=== PATIENT | female | born 1955 | race Caucasian/White ===

== ENCOUNTER 2022-09-11 21:02 | Outpatient (REF) | payer SELFPAY ==
[2022-09-11 21:44] LABS: Amphetamine Screen Urine NEGATIVE (NEGATIVE); Barbiturates Screen Urine NEGATIVE (NEGATIVE); Benzodiazepines Screen Urine NEGATIVE (NEGATIVE); Buprenorphine Screen Urine NEGATIVE (NEGATIVE); Cannabinoid Screen Urine NEGATIVE (NEGATIVE); Cocaine Screen Urine NEGATIVE (NEGATIVE); Methadone Screen Urine NEGATIVE (NEGATIVE); Methamphetamines Screen Urine NEGATIVE (NEGATIVE); Opiate Screen Urine NEGATIVE (NEGATIVE); Oxycodone Screen Urine NEGATIVE (NEGATIVE); Phencyclidine Screen Urine NEGATIVE (NEGATIVE); Tricyclic Antidepressant Urine NEGATIVE (NEGATIVE)
== END 2022-09-11 21:03 | disposition home or self-care (01) ==
LOC: LAB 21:02
PROVIDERS: Visit Provider Nurse Practitioner Primary Care
DX: B02.29 Other postherpetic nervous system involvement (principal)
CPT/HCPCS: 80307

== ENCOUNTER 2024-01-08 13:56 | Outpatient (OUT) | payer OTHER, SELFPAY | END 2024-01-08 13:57 | disposition home or self-care (01) | LOC: PST 13:56 | PROVIDERS: Visit Provider Surgery | DX: Z01.818 Encounter for other preprocedural examination (principal); Z12.11 Encounter for screening for malignant neoplasm of colon; Z86.0100 Personal history of colon polyps, unspecified ==

== ENCOUNTER 2024-02-06 11:42 | Outpatient (OUT) | payer OTHER, SELFPAY ==
--- OUTSIDE RECORDS SUMMARY | 2024-02-06 11:51 | XMS_ITS | CCD ---
Author Organization [facility] Care Team Providers Care Single Needle Operator Name Role Phone Unavailable Unavailable Unavailable Sandra Maxwell Unavailable Andrews Bustillos Primary Care Unavailable Vivian Giles Consulting Unavailable Mickey Shrestha Attending UnavailFuad Calhoun Admitting Unavailab Izzy Ulloa Consulting Unavailable Berny Hill Consulting Unavailable Que Servin Consulting Unavail able Radha Moran Consulting Unavailable Almas Harrison Consulting Unavailab Deborah Stevens Consulting Unavailable Elisabeth Leblanc Consulting Unavailable Lucia Pina Consulting Unavailab Jeny Beltre Consulting Unavailable DELMA SPAIN Attending Unavailable PIERCE, BARRY Referring Unavailable PIERCE, BARRY Primary Care Unavailable DELMA SPAIN Referring Unavailable PIERCE, BARRY Primary Care Unavailable KREIvette-SETH, CHANDAN Referring Unavailable PIERCE, BARRY Primary Care Unavailable JAMIE-SETH, CHANDAN Attending Unavailable PIERCE, BARRY Referring Unavailable PIERCE, BARRY Primary Care Unavailable Unavailable Primary Care Provider UnavailWaqar Manzo MD Unavailable Peggy Crawford MD Primary Care Provider Jade CUSTOMER SERVICE TELLER, Sis Unavailable SIS HANSEN Attending Unavailable NEGRITO CROOK Attending Unavailab SIS Cartagena Attending Unavailable SALBADOR LUNA Attending Unavailable JADE, SIS Referring Unavailable JADE, SIS Referring Unavailable IRVING PACHECO Attending Unavailable PIERCE, BARRY Primary Care Unavailable KREH-SETH, CHANDAN Referring Unavailable PIERCE, BARRY Primary Care Unavailable KREH-SETH, CHANDAN Referring Unavailable PIERCE, BARRY Primary Care Unavailable KREH-SETH, CHANDAN Referring Unavailable [facility] Un[facility] Unavailable CHARLOTTE GAMBOA Attending Unavailable CHANDAN MATUTE Referring Unavailable [facility] Unavailable [facility] Unavailable ANDREWS ALLAN Attending Unavailable Allergies Allergy Classification Reported Allergen(s) Allergy Type Date of Onset Reaction(s) Facility (4 sources) BEE VENOM PROTEIN (HONEY BEE); Translations: [BEE VENOM PROTEIN (HONEY BEE)] Propensity to adverse reactions to drug (disorder) 11-25-19 [facility] (4 sources) OELQMNOOS-MS-CT-ACET AMINOPHEN; Translations: [[id number]-WILLIAM TAMINOPHEN] Propensity to adverse reactions to drug (disorder) 03-12-19 [facility] (7 sources) Acetaminophen / Dextromethorphan / guaiFENesin / Pseudoephedrine Drug Allergy 03-12-19 [facility] (7 sources) Honey bee venom Propensity to adverse reactions 11-25-19 Anaphylaxis [facility] Medications Current Medications Medication Drug Class(es) Dates Sig (Normalized) Sig (Original) [id number] 200 actuat albuterol 0.09 mg/actuat metered dose inhaler (3 sources) beta2-Adrenergic Agonist Start: 11-15-2023 End: 11-14-2024 take 2 puff(s) by inhalation every four hours for wheezing albuterol HFA 90 mcg/act inhaler Indications: Cough, unspecified type , Wheezing Inhale 2 puffs every 4 (four) hours if needed for wheezing 18 g 11/15/2023 12/14/2023 Discontinued bisacodyl 5 mg delayed release oral tablet (2 sources) Stimulant Laxative Start: 12-24-2023 End: 12-24-2023 take 1 tablet by mouth once bisacodyl (Dulcolax) 5 MG EC tablet Indications: Personal history of colon polyps, unspecified Take 1 tablet (5 mg) by mouth 1 time for 1 dose Do not crush, chew, or split. Take as detailed on clinic hand out for colonoscopy prep 4 tablet 12/24/2023 12/24/2023 Active docosahexaenoic acid 120 mg / eicosapentaenoic acid 180 mg oral capsule (7 sources) Start: 06-14-2022 omega-3 (fish oil) 1000 MG capsule 1 capsule 1 (one) time each day at the same time. 06/14/2022 Active DULoxetine 30 mg delayed release oral capsule (7 sources) Serotonin and Norepinephrine Reuptake Inhibitor Start: 11-05-2023 take 1 capsule by mouth once daily DULoxetine (Cymbalta) [address] capsule Indications: Spinal stenosis of lumbar region without neurogenic claudication Take 1 capsule (30 mg) by mouth Daily Do not crush or chew. 90 capsule 11/05/2023 Active [id number] 0.3 ml EPINEPHrine 1 mg/ml auto-injector (7 sources) alpha-Adrenergic Agonist, beta-Adrenergic Agonist, Catecholamine Start: 09-19-2023 inject 0.3 mg by intramuscular injection every twenty-four hours as needed EPINEPHrine (Epipen) 0.3 MG/0.3ML injection syringe Inject 0.3 mg into the shoulder, thigh, or buttocks Daily as needed 09/19/2023 Active escitalopram 10 mg oral tablet (1 source) Serotonin Reuptake Inhibitor Start: 06-11-2007 escitalopram oxalate(LEXAPRO 10 MG TAB) hydrOXYzine hydrochloride 25 mg oral tablet (7 sources) Antihistamine take 1 tablet by mouth every six hours as needed for anxiety hydrOXYzine HCl (Atarax) 25 MG tablet Take 25 mg by mouth every 6 (six) hours if needed for anxiety Active ibuprofen 200 mg oral tablet (1 source) Nonsteroidal Anti-inflammatory Drug Start: 06-11-2007 ibuprofen(ADVIL 200 MG TAB) as needed 0 06/11/2007 Active levothyroxine sodium 0.05 mg oral tablet (7 sources) l-Thyroxine Synthroid 50 MCG tablet 1 (one) time each day at the same time. Active MULTIVITAMIN TAB (1 source) Start: 06-11-2007 MULTIVITAMIN TAB Take one(1) tablet daily. 0 06/11/2007 Active Nirmatrelvir&Ritonavi r 300/100 (Paxlovid, 300/100,) 20 x 150 MG & 10 x 100MG tablet therapy pack (3 sources) Start: 11-15-2023 End: 12-14-2023 take 1 tablet by mouth in the morning Nirmatrelvir&Farooq navir 300/100 (Paxlovid, 300/100,) 20 x 150 MG & 10 x 100MG tablet therapy pack Indications: COVID-19 Take 1 Dose pack by mouth in the morning and 1 Dose pack before bedtime. 1 each 11/15/2023 12/14/2023 Discontinued Start: 11-15-2023 take 1 tablet by perla th in the morning Nirmatrelvir&Ritonavir 300/100 (Paxlovid , 300/100,) 20 x 150 MG & 10 x 100MG tablet therapy pack Indications: COVID-19 Take 1 Dose pack by mouth in the morning and 1 Dose pack before bedtime. 1 each 11/15/2023 Active polyethylene glycol 3350 68603 mg powder for oral solution (2 sources) Osmotic Laxative Start: 12-24-2023 End: 12-24-2023 take 17 g by mouth once polyethylene glycol, PEG, 3350 (Glycolax) 17 GM/SCOOP powder Indications: Colonoscopy Take 238 g by mouth 1 (one) time for 1 dose Take as detailed from clinic hand out for colonoscopy prep 238 g 12/24/2023 12/24/2023 Active Problems Active Problems Problem Classification Problem Date Documented Da te Episodic/Chronic Anxiety disorders (4 sources) Panic attack; Translations: [Panic disorder [episodic paroxysmal anxiety]] 12-14-2023 Chronic Diabetes mellitus without complication (9 sources) Prediabetes; Translations: [Prediabetes] 11-07-2023 Episodic Disorders of lipid metabolism (10 sources) Pure hypercholesterolemia , unspecified; Translations: [Hypercholesterolemi a] Onset: 04-19-2021 11-05-2023 Chronic Essential hypertension (9 sources) Hypertensive disorder; Translations: [Essential (primary) hypertension] 11-07-2023 Chronic Immunizations and screening for infectious disease (1 source) Encounter for observation for suspected exposure to other biological agents ruled out; Translations: [Exposure To Biological Agent Suspected] Onset: 09-08-2019 Episodic Other and unspecified benign neoplasm (4 sources) Tubular adenoma ; Translations: [Benign neoplasm, unspecified site] 12-14-2023 Episodic Other and unspecified benign neoplasm (6 sources) History of polyp of colon; Translations: [History of colon polyps] 12-14-2023 Episodic Other bone disease and musculoskeletal deformities (9 sources) Osteopenia; Translations: [Other specified disorders of bone density and structure, unspecified site] 11-07-2023 Episodic Other nervous system disorders (2 sources) Disease of spinal cord, unspecified; Translations: [Disease of spinal cord, unspecified] Onset: 07-11-2023 Chronic Other non-traumatic joint disorders (1 source) Pain in left hip; Translations: [Pain in left hip] Onset: 07-05-2023 Episodic Other non-traumatic joint disorders (1 source) Pain in left wrist; Translations: [Pain in left wrist] Onset: 01-14-2024 Episodic Other non-traumatic joint disorders (1 source) Pain in wrist Onset: 01-14-2024 Episodic Other screening for suspected conditions (not mental disorders or infectious disease) (2 sources) Patient encounter status; Translations: [Encounter for screening mammogram for malignant neoplasm of breast] 12-14-2023 Episodic Residual codes; unclassified (7 sources) Insomnia; Translations: [Insomnia, unspecified] Onset: 11-05-2023 11-05-2023 Episodic Screening and history of mental health and substance abuse codes (4 sources) Personal history of nicotine dependence; Translations: [Personal history of tobacco use] 12-14-2023 Episodic Spondylosis; intervertebral disc disorders; other back problems (13 sources) Other spondylosis with radiculopathy, lumbar region; Translations: [Other intervertebral disc degeneration, lumbar region] Onset: 04-20-2020 08-10-2023 Chronic Sprains and strains (1 source) Unspecified sprain of left wrist, initial encounter; Translations: [Unspecified sprain of left wrist, initial encounter] Onset: 01-14-2024 Episodic Thyroid disorders (10 sources) Hypothyroidism, unspecified; Translations: [Hypothyroidism] Onset: 04-19-2021 11-05-2023 Chronic Unclassified (1 source) I47.2 - Ventricular tachycardia; Translations: [I47.2 - Ventricular tachycardia] Onset: 04-19-2021 Unclassified (1 source) New Patient Onset: 07-05-2023 Unclassified (3 sources) Low back pain, unspecified; Translations: [Low back pain, unspecified] Onset: 07-11-2023 Unclassified (1 source) Consult Onset: 07-11-2023 Unclassified (1 source) Insect Bite Onset: 09-19-2023 Unclassified (1 source) ill Onset: 04-28-2024 Past or Other Problems Problem Classification Problem Date Documented Da te Episodic/Chronic Allergic reactions (2 sources) Allergy, unspecified, initial encounter; Translations: [Allergic reaction] Onset: 06-24-2023 Episodic Cardiac dysrhythmias (10 sources) Nonsustained ventricular tachycardia ; Translations: [Paroxysmal ventricular tachycardia] Onset: 11-05-2023 Resolved: 12-14-2023 11-05-2023 Chronic Malaise and fatigue (1 source) Other fatigue; Translations: [R53.83 - Other fatigue] Onset: 04-19-2021 Episodic Mood disorders (6 sources) Mood disorders Onset: 12-14-2023 12-14-2023 Other and unspecified benign neoplasm (7 sources) Hyperplastic polyp of intestine; Translations: [Polyp of colon] Onset: 03-22-2020 11-05-2023 Episodic Poisoning by nonmedicinal substances (1 source) Toxic effect of venom of bees, accidental (unintentional), initial encounter; Translations: [Toxic effect of venom of bees, accidental (unintentional), initial encounter] Onset: 06-24-2023 Episodic Residual codes; unclassified (1 source) Insomnia, unspecified; Translations: [G47.00 - Insomnia, unspecified] Onset: 04-19-2021 Episodic Spondylosis; intervertebral disc disorders; other back problems (12 sources) Radiculopathy, lumbar region; Translations: [Lumbar radiculopathy] Onset: 06-02-2020 08-10-2023 Episodic Results Test Name Value Interpretation Reference Range Facility XR WRIST LT MIN 3 VWSon 11- XR WRIST LT MIN 3 VWS XR WRIST LT MIN 3 VWS XR WRIST LT MIN 3 VWS HISTORY: Wrist pain, injury COMPARISON: None FINDINGS: There is no acute fracture, dislocation, or destructive osseous lesion. Well-corticated osseous density abutting the ulnar styloid process, potentially representing sequelae of remote injury. Radiocarpal and ulnocarpal joint spaces are preserved. Carpal arcs are maintained. IMPRESSION: * No acute osseous abnormality. Approved by Resident Andrews Lehman DO on 01/14/2024 6:03 PM Nico Verdin have personally reviewed the image(s) and agree with and/or edited the report Finalized by Nico Adams on 01/14/2024 6:10 PM Normal [facility] BI MAMMOGRAM SCREENING TOMOS YNTHESIS BILATERALon 12-27-2023 BI MAMMOGRAM SCREENING TOMOSYNTHESIS BILATERAL This is a summary report. The complete report is available in the patient's medical record. If you cannot access the medical record, please contact the sending organization for a detailed fax or copy. Examination: BI MAMMOGRAM SCREENING TOMOSYNTHESIS BILATERAL Clinical History: screening Technique: Screening digital mammography study of both breasts was performed with 2-D and 3-D tomosynthesis imaging. Study was compared to the prior exam dated 06/02/2022. Findings: There is no evidence of interval dominant spiculated mass, grouped microcalcifications, or skin thickening which would be suggestive of malignancy. Axillary lymph nodes are noted bilaterally. IMPRESSION: Impression: No specific evidence of malignancy seen in either breast. BIRADS 2 - Benign DENSITY: There are scattered areas of fibroglandular density FOLLOW-UP: Routine Screening Mamm ELECTRONICALLY SIGNED BY: Arie Crawford M.D. Normal Not Available CT LUNG SCREENING LOW DOSEon 12-27-2023 CT LUNG SCREENING LOW DOSE This is a summary report. The complete report is available in the patient's medical record. If you cannot access the medical record, please contact the sending organization for a detailed fax or copy. LOW DOSE CT IMAGING OF THE CHEST WITHOUT INTRAVENOUS CONTRAST MEDIUM. HISTORY: Tobacco use. TECHNICAL FACTORS: Without IV contrast axial helical 1.25mm slice thickness low dose images of the chest performed for lung cancer screening. FINDINGS: No suspicious lung mass or parenchymal consolidation. No significant mediastinal or hilar lymphadenopathy, pleural or pericardial effusion. IMPRESSION: Lung Rads: LUNGRADS 1 - Negative Follow-up Recommendation: LDCT 1 Year Lung Rads categories Category 0: Incomplete Additional Imaging Categories 1 & 2: Negative/Benign Continue annual screening Category 3: Probable benign 6 month f/u CT Chest wo Category 3s: Clinically significant or potentially clinically significant findings Category 4A/B Suspicious 4A: [address] Chest wo; PET/CT when > 8mm solid nodule component exists 4B: Chest w/ contrast; PET/CT and/or biopsy All CT scans at this facility use dose modulation, iterative reconstruction, and/or weight based dosing when appropriate to reduce radiation dose to as low as reasonably achievable. TRANSCRIBED BY: ELECTRONICALLY SIGNED BY: Corona Nazario MD Normal Not Available MR LUMBAR SPINE WO CONTon MR LUMBAR SPINE WO CONT MR LUMBAR SPINE WO CONT CLINICAL INFORMATION: Osteoarthritis of spine with radiculopathy, lumbar region; Lumbar radiculopathy; Lumbar myelopathy (CMS-HCC); Low back pain, unspecified back pain laterality, unspecified chronicity, unspecified whether sciatica present; DDD (degenerative disc disease), lumbar TECHNIQUE: Routine multiplanar multisequence MR imaging of the lumbar spine was performed without contrast. COMPARISON: Radiographs 07/11/2023 FINDINGS: Vertebral body heights and alignment are maintained of the lumbar spine. Normal lumbar lordosis. Homogeneous marrow signal. Multilevel degenerative disc disease. No significant STIR abnormality is present within the lumbar spine. Paraspinal musculature and partially visualized abdomen are within normal limits. Conus medullaris extends to the L1 level normal limits. T11-T12: Mild broad-based disc bulge, no spinal canal or neuroforaminal narrowing. T12-L1: Mild broad-based disc bulge, no significant spinal canal narrowing, mild bilateral neural foraminal narrowing. L1-L2: No significant spinal canal or neuroforaminal narrowing. L2-L3: Broad-based disc bulge, facet arthropathy and ligamentum flavum thickening causing mild spinal canal narrowing and moderate bilateral neural foraminal narrowing. L3-L4: Broad-based disc bulge, facet arthropathy and ligamentum flavum thickening causing minimal spinal canal narrowing, moderate bilateral neural foraminal narrowing. L4-L5: Broad-based disc bulge facet arthropathy causing no significant spinal canal narrowing, moderate left and mild right neural foraminal narrowing. L5-S1: No significant spinal canal narrowing. Severe right and moderate left neural foraminal narrowing. IMPRESSION: * Multilevel degenerative changes of the lumbar spine as described above but most notable at L2-L3 causing mild spinal canal narrowing and moderate bilateral neural foraminal narrowing as well as at L5-S1 with severe right and moderate left neural foraminal narrowing. Finalized by David Lim MD on 07/28/2023 11:42 PM Normal [facility] XR LUMBAR SPINE AP, LATERAL, FLEXION AND EXTENSION ONLYon 07-11-2023 XR LUMBAR SPINE AP, LATERAL, FLEXION AND EXTENSION ONLY XR LUMBAR SPINE AP, LATERAL, FLEXION AND EXTENSION ONLY XR LUMBAR SPINE AP, LATERAL, FLEXION AND EXTENSION ONLY Clinical history:Low back pain, unspecified back pain laterality, unspecified chronicity, unspecified whether sciatica present lumbar back pain Comparison: 02/11/2019 Findings: Advanced multilevel degenerative disc disease with disco loss of amplitude degenerative changes and facet hypertrophy. No significant movement with flexion or extension. Impression: Advanced multilevel degenerative disc disease. No acute process. Finalized by Nico Bronson MD on 07/11/2023 1:31 PM Normal [facility] CARDIAC STRESS/REST INJE CTIONon 05-11-2021 [facility] CARDIAC STRESS/REST INJECTION Patient Name: ADE EDMONDS STUDY: MYOCARDIAL PERFUSION STRESS TEST WITH LEXISCAN Performing facility: [facility], [address] [place] [address], [address] Provider: Deangelo Lyon DO, FACC PCP: Dr. SANDRA MAXWELL Supervising provider: Deangelo Lyon DO, FACC INDICATION: NONSUSTAINED VT HISTORY: Gender: F; Age: 65 y/o ; Height: 0 cm; Weight: 0 kg. High Cholesterol; Arrhythmias;VT Currently smoking. COMPARISON: No comparison. ACCESSION NUMBER(S): [id number]; [id number]; [id number] ORDERING CLINICIAN: QUE LYON TECHNIQUE: ONE DAY protocol. Stress injection: Date:05/11/21, 33.0 mCi of Myoview IV 20 seconds after rapid injection of Lexiscan. Rest injection: Date: 05/11/21, 10.4 mCi of Myoview IV at rest. The patient had a rapid injection of 0.4 mg of Lexiscan IV over 10 seconds. Imaging was performed by gated tomographic technique. Reason for Lexiscan: RECENT KNEE SX STRESS TEST DATA: Resting heart rate was 67 BPM. Resting blood pressure was 110/70 mmHg. Peak blood pressure was 130/70 mmHg. Peak heart rate was 91 BPM. TEST TERMINATED DUE TO: Protocol completed FINDINGS: STRESS TEST RESULTS: Resting electrocardiogram revealed normal sinus rhythm. There were none diagnostic ischemic ECG changes or dysrhythmias. The patient did not have chest pains/symptoms during procedure. There was a normal recovery phase. IMAGING RESULTS: Image quality was good. Rest and stress tomographic images were reviewed and revealed normal perfusion without evidence of ischemia, myocardial infarction, or left ventricular dilatation with stress. Overall left ventricular systolic function appeared to be normal without regional wall motion abnormalities. Ejection fraction was 74%. TID is 1.1 and is normal. There were no evidence of attenuation artifact. IMPRESSION: Normal Lexiscan Myoview cardiac perfusion stress test. No evidence of ischemia or myocardial infarction by perfusion imaging. Normal left ventricular systolic function, ejection fraction 74%. No previous study available for comparison. Electronically signed by: RADHA MORAN MD Normal [facility] No Panel Informationon 05-11 Normal [facility] 250 DO Work Phone: A1C with Estimated Average G luon 04-20-2021 Glucose [Mass/Vol] 114 mg/dL Normal [facility] Comment on above: Order Comment: Comme nt Add on to previous lab draw Result Comment: PERF ORMED BY: [place] [id number] PATHOLOGIST SOFTWARE QA SYSTEM SPECIALIST ARLENE DENTON M.D. Performed By: #### H EPATIC, BMP, LIPASE #### [address] HbA1c (Bld) [Mass fraction] 5.6 % Normal 4.3-5.6 [facility] Comment on above: Order Comment: Comme nt Add on to previous lab draw Result Comment: Incr eased risk for diabetes: 5.7 - 6.4 diabetes: >6.4 glycemic control for adults with diabetes: <7.0 Performed By: #### H EPATIC, BMP, LIPASE #### [facility] [address] [place] [address] Complete Blood Count Auto Di ffon 04-20-2021 Basophils (Bld) [#/Vol] 0.0 10*3/uL Normal 0.0-0.2 [facility] Comment on above: Result Comment: PERF ORMED BY: [address] [place] [address] PATHOLOGIST SOFTWARE QA SYSTEM SPECIALIST ARLENE DENTON M.D. Performed By: #### C BC, CMP #### [facility] [address] Basophils/100 WBC (Bld) 0.3 % Normal . [facility] Comment on above: Performed By: #### C BC, CMP #### [facility] [address] Eosinophils (Bld) [#/Vol] 0.0 10*3/uL Normal 0.0-0.45 [facility] Comment on above: Performed By: #### C BC, CMP #### [facility] [address] Eosinophils/100 WBC (Bld) 0.0 % Normal . [facility] Comment on above: Performed By: #### C BC, CMP #### [address] Erythrocyte distribution width (RBC) [Ratio] 13.9 % Normal 11.9-15.3 [facility] Comment on above: Performed By: #### C BC, CMP #### [address] Hematocrit (Bld) [Volume fraction] 38.7 % Normal 34.0-46.4 [facility] Comment on above: Performed By: #### C BC, CMP #### [address] Hemoglobin (Bld) [Mass/Vol] 12.7 g/dL Normal 11.8-15.4 [facility] Comment on above: Performed By: #### C BC, CMP #### [address] Lymphocytes (Bld) [#/Vol] 0.9 10*3/uL Low 1.00-4.8 [facility] Comment on above: Performed By: #### C BC, CMP #### [address] Lymphocytes/100 WBC (Bld) 6.8 % Normal . [facility] Comment on above: Performed By: #### C BC, CMP #### [place] [address] [place] MCH (RBC) [Entitic mass] 29.8 pg Normal 24.7-34.3 [facility] Comment on above: Performed By: #### C BC, CMP #### [address] MCV (RBC) [Entitic vol] 91.0 fL Normal 80-100 [facility] Comment on above: Performed By: #### C BC, CMP #### [address] Mean Corpuscular HGB Conc 32.8 g/dL Normal 32.0-35.0 [facility] Comment on above: Performed By: #### C BC, CMP #### [address] Monocytes (Bld) [#/Vol] 0.6 10*3/uL Normal 0.0-0.8 [facility] Comment on above: Performed By: #### C BC, CMP #### [address] Monocytes/100 WBC (Bld) 4.5 % Normal . [facility] Comment on above: Performed By: #### C BC, CMP #### [address] Neutrophils (Bld) [#/Vol] 12.1 10*3/uL High 1.8-7.7 [facility] Comment on above: Performed By: #### C BC, CMP #### [address] Neutrophils/100 WBC (Bld) 88.4 % Normal . [facility] Comment on above: Performed By: #### C BC, CMP #### [address] Nucleated RBC/100 WBC (Bld) [Ratio] 0.1 % Normal 0-0.5 [facility] Comment on above: Performed By: #### C BC, CMP #### [address] Platelet mean volume (Bld) [Entitic vol] 8.4 fL Normal 6.3-10.7 [facility] Comment on above: Performed By: #### C BC, CMP #### [facility] [address] Platelets (Bld) [#/Vol] 267 10*3/uL Normal 150-450 [facility] Comment on above: Performed By: #### C BC, CMP #### [facility] [address] [place] [address] RBC (Bld) [#/Vol] 4.25 10*6/uL Normal 3.60-5.00 [facility] Comment on above: Performed By: #### C BC, CMP #### [address] WBC (Bld) [#/Vol] 13.7 10*3/uL High 4.5-11.0 [facility] Comment on above: Performed By: #### C BC, CMP #### [address] Comprehensive Metabolic Pane ileana 04-20-2021 Alanine Aminotransferase Normal 10-60 [facility] Comment on above: Result Comment: Spec imen hemolyzed, redraw requested Performed By: #### C BC, CMP #### [address] Albumin [Mass/Vol] 3.3 g/dL Normal 3.2-5.5 [facility] Comment on above: Performed By: #### C BC, CMP #### [address] Albumin/Globulin [Mass ratio] 1.3 {ratio} Normal [facility] Comment on above: Performed By: #### C BC, CMP #### [address] Alkaline Phosphatase Normal 32-92 [facility] Comment on above: Result Comment: Spec imen hemolyzed, redraw requested Performed By: #### C BC, CMP #### [address] [address] [place] Aspartate Amino Transferase Normal 10-42 [facility] Comment on above: Result Comment: Spec imen hemolyzed, redraw requested Performed By: #### C BC, CMP #### [facility] [address] [place] [address] [place] Bilirubin,Total Normal 0.3-1.2 [facility] Comment on above: Result Comment: Spec imen hemolyzed, redraw requested Performed By: #### C BC, CMP #### [facility] [address] [place] [address] [place] Calcium [Mass/Vol] 8.9 mg/dL Normal 8.2-10.2 [facility] Comment on above: Performed By: #### C BC, CMP #### [facility] [address] Chloride [Moles/Vol] 106 mmol/L Normal 95-114 [facility] Comment on above: Performed By: #### C BC, CMP #### [facility] [address] [place] [address] [place] CO2 [Moles/Vol] 24.6 mmol/L Normal 22.0-30.0 [facility] Comment on above: Performed By: #### C BC, CMP #### [facility] [address] Creatinine [Mass/Vol] 0.70 mg/dL Normal 0.44-1.03 [facility] Comment on above: Performed By: #### C BC, CMP #### [facility] [address] [place] [address] [place] Creatinine Clr Calc Pharmacy 82.12 [facility] Comment on above: Result Comment: PERF ORMED BY: [place] [address] PATHOLOGIST SOFTWARE QA SYSTEM SPECIALIST ARLENE DENTON M.D. Performed By: #### C BC, CMP #### [facility] [address] [place] [address] [place] Estimated GFR ( Patsy > 60 Normal [facility] Comment on above: Result Comment: GFR estimated reference range: According to KDOQI guidelines, <60 ml/min/1.73m2 is sufficient to diagnose a patient with chronic kidney disease. Performed By: #### C BC, CMP #### [address] Estimated GFR (Non- Am > 60 Normal [facility] Comment on above: Performed By: #### C BC, CMP #### [facility] [address] [place] [id number] [place] Globulin (S) [Mass/Vol] 2.6 g/dL Normal [facility] Comment on above: Performed By: #### C BC, CMP #### [address] Glucose [Mass/Vol] 118 mg/dL High 70-100 [facility] Comment on above: Result Comment: [place] Glucose Reference Range is dependent on time and content of last meal. Glucose of more than 200 mg/dL in a nonstressed, ambulatory subject supports the diagnosis of Diabetes Mellitus. ADA recommended reference range Performed By: #### C BC, CMP #### [address] Potassium Normal 3.5-5.1 [facility] Comment on above: Result Comment: Spec imen hemolyzed, redraw requested Performed By: #### C BC, CMP #### [place] [id number] [facility] Protein [Mass/Vol] 5.9 g/dL Low 6.1-7.9 [facility] Comment on above: Performed By: #### C BC, CMP #### [place] [id number] [place] Sodium [Moles/Vol] 138 mmol/L Normal 136-146 [facility] Comment on above: Performed By: #### C BC, CMP #### [place] [id number] [place] Urea nitrogen [Mass/Vol] 12 mg/dL Normal 9-23 [facility] Comment on above: Performed By: #### C BC, CMP #### [address] [place] [address] [facility] echo transthoracicon [facility] echo transthoracic [facility] [address] [place] [address] [place] [address] Echocardiogram Signed Patient: Ade Edmonds MR#: [id number] : 1955 Acct:[id number] Age/Sex: 65 / F ADM Date: 04/19/21 Loc: Room: [address] [place] [address] Type: DIS INOo Attending Dr: Mickey Shrestha DO Ordering Provider: Clint Lagunas DO, RES Date of Service: 04/19/21 [facility] echo transthoracic: pulseless v-tach during surgery outpatient <10s Copies to: Clint Lagunas DO, REI Servin MD Weight: 160 lb Performed By: Christy Feldman RDCS BSA: 1.8 m2 BP: 119/66 mmHg HR: 58 Reason For Study: pulseless v-tach during surgery outpatient <10s History: COVID-19. Smoker. Interpretation Summary The left ventricular size, thickness and function are normal Ejection Fraction = 55-60%. A variety of Doppler measurements indicate normal left ventricular diastolic function. There is trace mitral regurgitation. There is trace tricuspid regurgitation. Procedure/Quality: A two-dimensional transthoracic echocardiogram with color flow and Doppler was performed. The study was technically good in quality. Left Ventricle: The left ventricular size, thickness and function are normal. Ejection Fraction = 55-60%. A variety of Doppler measurements indicate normal left ventricular diastolic function. No left ventricular thrombus or mass is seen. Left Atrium: The left atrium appears normal in size. The atrial septum appears normal. Right Atrium: The right atrium appears normal in size. Right Ventricle: The right ventricular size, thickness and function are normal. Aortic Valve: The aortic valve is normal in structure and function. Mitral Valve: The mitral valve is normal. There is trace mitral regurgitation. Tricuspid Valve: The tricuspid valve is normal. There is trace tricuspid regurgitation. Pulmonic Valve: The pulmonic valve is not well visualized. Arteries: The aortic root is normal size. The aortic arch was visualized and no abnormalities were seen. Pericardium/Pleura: No pericardial effusion seen. There is no pleural effusion. IVC/Hepatic Viens: The inferior vena cava is normal in size, with a normal collapsibility index. Measurements with Normals IVSd: 0.82 cm (0.7-1.1 cm)LVIDd: 4.2 cm (3.7-5.4 cm) LVPWd: 0.83 cm (0.7-1.1 cm)LVIDs: 2.7 cm (2.3-3.6 cm) LA dimension: 3.2 cm (2.3-4.0 cm)Ao root diam: 3.3 cm(2.0-3.6 cm) asc Aorta Diam: 3.0 cm(2.1-3.4cm) Doppler with Normals RVSP(TR): 25.6 mmHg (18-35mmHg) LV V1 max: 109.1 cm/sec (0.7-1.7m/s)MV E max rah: 83.1 cm/sec(0.8-1.3m/s) MV A max rah: 84.4 cm/sec(0.0-0.0m/s) MV E/A: 0.98 (<1.5) MMode/2D Measurements Calculations TAPSE: 2.2 cm FS: 34.7 % Ao root area: LVOT diam: 2.0 cm RV S Rah: EDV(Teich): 8.4 cm2 LVOT area: 3.1 cm2 14.4 cm/sec 77.9 ml ESV(Teich): 27.8 ml EF(Teich): 64.3 % __ LVLd ap4: 7.3 cm SV(MOD-sp4): LAV(MOD-sp4): LA A2 area: 12.4 cm2 EDV(MOD-sp4): 28.0 ml 23.3 ml 48.8 ml LAV(MOD-sp2): LA A4 area: 13.0 cm2 LVLs ap4: 5.8 cm 25.4 ml LA length (vol): ESV(MOD-sp4): 5.4 cm 20.8 ml LA vol: 25.5 ml EF(MOD-sp4): 57.4 % LA vol index: 14.2 ml/m2 Doppler Measurements Calculations MV dec time: MV max PG: E/E' lat: 9.4 MV dec slope: 0.19 sec 39.0 mmHg E/E' med: 10.3 429.2 cm/sec2 __ Ao V2 max: LV V1 max PG: MR max rah: TV max P.0 mmHg 121.6 cm/sec 4.8 mmHg 313.7 cm/sec Ao max P.9 mmHgLV V1 mean PG: MR max PG: Ao mean P.6 mmHg 39.5 mmHg 3.3 mmHg LV V1 mean: Ao V2 mean: 76.7 cm/sec 85.8 cm/sec LV V1 VTI: 24.9 cm Ao V2 VTI: 25.7 cm CARLEE(I,D): 3.0 cm2 CARLEE(V,D): 2.8 cm2 __ TR max rah: 237.7 cm/sec TR max P.6 mmHg RAP systole: 3.0 mmHg Transcribed By: MARISELA Performed At: 04/20/21715 Signed By: Que Servin MD 04/20/21 0852 Normal [facility] Redraw Ezequiel 04-20-2021 ALT [Catalytic activity/Vol] 11 U/L Normal 10-60 [facility] Comment on above: Performed By: #### H RALPH BMP, LIPASE #### [facility] [address] Redraw Toribio 04-20-2021 AST [Catalytic activity/Vol] 17 U/L Normal 10-42 [facility] Comment on above: Performed By: #### H RALPH BMP, LIPASE #### [facility] [address] [place] [address] [place] Redraw Alkaline Phosphataseo n 04-20-2021 ALP [Catalytic activity/Vol] 44 U/L Normal 32-92 [facility] Comment on above: Result Comment: PERF ORMED BY: [place] [address] PATHOLOGIST SOFTWARE QA SYSTEM SPECIALIST ARLENE DENTON M.D. Performed By: #### H EPATIC, BMP, LIPASE #### [address] Redraw Bilirubin,Totalon Bilirubin [Mass/Vol] 0.5 mg/dL Normal 0.3-1.2 [facility] Comment on above: Performed By: #### H EPATIC, BMP, LIPASE #### [address] Redraw Potassiumon Potassium [Moles/Vol] 4.1 mmol/L Normal 3.5-5.1 [facility] Comment on above: Performed By: #### H EPATIC, BMP, LIPASE #### [address] B-Type Natriuretic Peptideon 04-19-2021 Natriuretic peptide B (Bld) [Mass/Vol] 62.0 pg/mL Normal 5-100 [facility] Comment on above: Result Comment: PERF ORMED BY: [place] [address] PATHOLOGIST SOFTWARE QA SYSTEM SPECIALIST ARLENE DENTON M.D. Performed By: #### H EPATIC, BMP, LIPASE #### [address] Basic Metabolic Panelon 03-30 Calcium [Mass/Vol] 9.1 mg/dL Normal 8.2-10.2 [facility] Comment on above: Performed By: #### H EPATIC, BMP, LIPASE #### [place] [address] [place] Chloride [Moles/Vol] 104 mmol/L Normal 95-114 [facility] Comment on above: Performed By: #### H EPATIC, BMP, LIPASE #### [place] [address] [place] CO2 [Moles/Vol] 23.3 mmol/L Normal 22.0-30.0 [facility] Comment on above: Performed By: #### H EPATIC, BMP, LIPASE #### [facility] [address] Creatinine [Mass/Vol] 0.88 mg/dL Normal 0.44-1.03 [facility] Comment on above: Performed By: #### H EPATIC, BMP, LIPASE #### [facility] [address] [place] [address] [place] Creatinine Clr Calc Pharmacy 64.19 [facility] Comment on above: Performed By: #### H EPATIC, BMP, LIPASE #### [facility] [address] Estimated GFR ( Patsy > 60 [facility] Comment on above: Result Comment: GFR estimated reference range: According to KDOQI guidelines, <60 ml/min/1.73m2 is sufficient to diagnose a patient with chronic kidney disease. Performed By: #### H EPATIC, BMP, LIPASE #### [address] Estimated GFR (Non- Am > 60 [facility] Comment on above: Performed By: #### H EPATIC, BMP, LIPASE #### [address] Glucose [Mass/Vol] 115 mg/dL High 70-100 [facility] Comment on above: Result Comment: [place] Glucose Reference Range is dependent on time and content of last meal. Glucose of more than 200 mg/dL in a nonstressed, ambulatory subject supports the diagnosis of Diabetes Mellitus. ADA recommended reference range Performed By: #### H EPATIC, BMP, LIPASE #### [address] Potassium [Moles/Vol] 4.0 mmol/L Normal 3.5-5.1 [facility] Comment on above: Performed By: #### H EPATIC, BMP, LIPASE #### [facility] [address] Sodium [Moles/Vol] 137 mmol/L Normal 136-146 [facility] Comment on above: Performed By: #### H EPATIC, BMP, LIPASE #### [address] Urea nitrogen [Mass/Vol] 9 mg/dL Normal 9-23 [facility] Comment on above: Performed By: #### H EPATIC, BMP, LIPASE #### [address] C-Reactive Proteinon 022 CRP [Mass/Vol] mg/L Normal 0.0-1.0 [facility] Comment on above: Order Comment: 1757 IN ER PSW Performed By: #### H EPATIC, BMP, LIPASE #### [address] Complete Blood Count Auto Di ffon 04-19-2021 Basophils (Bld) [#/Vol] 0.1 10*3/uL Normal 0.0-0.2 [facility] Comment on above: Result Comment: PERF ORMED BY: [place] [address] PATHOLOGIST SOFTWARE QA SYSTEM SPECIALIST ARLENE DENTON M.D. Performed By: #### C KMB, HS TROP, BNP, CBC, PT, PTT, CK #### [address] Basophils/100 WBC (Bld) 0.7 % Normal . [facility] Comment on above: Performed By: #### C KMB, HS TROP, BNP, CBC, PT, PTT, CK #### [address] Eosinophils (Bld) [#/Vol] 0.0 10*3/uL Normal 0.0-0.45 [facility] Comment on above: Performed By: #### C KMB, HS TROP, BNP, CBC, PT, PTT, CK #### [address] Eosinophils/100 WBC (Bld) 0.3 % Normal . [facility] Comment on above: Performed By: #### C KMB, HS TROP, BNP, CBC, PT, PTT, CK #### [address] Erythrocyte distribution width (RBC) [Ratio] 13.9 % Normal 11.9-15.3 [facility] Comment on above: Performed By: #### C KMB, HS TROP, BNP, CBC, PT, PTT, CK #### [address] Hematocrit (Bld) [Volume fraction] 42.7 % Normal 34.0-46.4 [facility] Comment on above: Performed By: #### C KMB, HS TROP, BNP, CBC, PT, PTT, CK #### [address] Hemoglobin (Bld) [Mass/Vol] 13.6 g/dL Normal 11.8-15.4 [facility] Comment on above: Performed By: #### C KMB, HS TROP, BNP, CBC, PT, PTT, CK #### [address] Lymphocytes (Bld) [#/Vol] 0.8 10*3/uL Low 1.00-4.8 [facility] Comment on above: Performed By: #### C KMB, HS TROP, BNP, CBC, PT, PTT, CK #### [address] Lymphocytes/100 WBC (Bld) 7.2 % Normal . [facility] Comment on above: Performed By: #### C KMB, HS TROP, BNP, CBC, PT, PTT, CK #### [address] MCH (RBC) [Entitic mass] 29.2 pg Normal 24.7-34.3 [facility] Comment on above: Performed By: #### C KMB, HS TROP, BNP, CBC, PT, PTT, CK #### [address] MCV (RBC) [Entitic vol] 91.2 fL Normal 80-100 [facility] Comment on above: Performed By: #### C KMB, HS TROP, BNP, CBC, PT, PTT, CK #### [facility] [address] Mean Corpuscular HGB Conc 32.0 g/dL Normal 32.0-35.0 [facility] Comment on above: Performed By: #### C KMB, HS TROP, BNP, CBC, PT, PTT, CK #### [facility] [address] Monocytes (Bld) [#/Vol] 0.2 10*3/uL Normal 0.0-0.8 [facility] Comment on above: Performed By: #### C KMB, HS TROP, BNP, CBC, PT, PTT, CK #### [address] Monocytes/100 WBC (Bld) 1.5 % Normal . [facility] Comment on above: Performed By: #### C KMB, HS TROP, BNP, CBC, PT, PTT, CK #### [address] Neutrophils (Bld) [#/Vol] 10.6 10*3/uL High 1.8-7.7 [facility] Comment on above: Performed By: #### C KMB, HS TROP, BNP, CBC, PT, PTT, CK #### [address] Neutrophils/100 WBC (Bld) 90.3 % Normal . [facility] Comment on above: Performed By: #### C KMB, HS TROP, BNP, CBC, PT, PTT, CK #### [facility] [address] [place] [address] [place] Nucleated RBC/100 WBC (Bld) [Ratio] 0.1 % Normal 0-0.5 [facility] Comment on above: Performed By: #### C KMB, HS TROP, BNP, CBC, PT, PTT, CK #### [place] [address] [place] Platelet mean volume (Bld) [Entitic vol] 8.5 fL Normal 6.3-10.7 [facility] Comment on above: Performed By: #### C KMB, HS TROP, BNP, CBC, PT, PTT, CK #### [address] Platelets (Bld) [#/Vol] 273 10*3/uL Normal 150-450 [facility] Comment on above: Performed By: #### C KMB, HS TROP, BNP, CBC, PT, PTT, CK #### [address] RBC (Bld) [#/Vol] 4.68 10*6/uL Normal 3.60-5.00 [facility] Comment on above: Performed By: #### C KMB, HS TROP, BNP, CBC, PT, PTT, CK #### [address] WBC (Bld) [#/Vol] 11.7 10*3/uL High 4.5-11.0 [facility] Comment on above: Performed By: #### C KMB, HS TROP, BNP, CBC, PT, PTT, CK #### [address] Creatine Kinaseon 04-19-2021 CK [Catalytic activity/Vol] 80 U/L Normal 22-269 [facility] Comment on above: Performed By: #### H EPATIC, BMP, LIPASE #### [address] Creatinine Kinase MBon 04-19 CK.MB [Mass/Vol] 1.4 ng/mL Normal 0.6-6.3 [facility] Comment on above: Performed By: #### H EPATIC, BMP, LIPASE #### [address] CKMB Relative Index 1.7 % Normal 0.00-2.50 [facility] Comment on above: Performed By: #### H EPATIC, BMP, LIPASE #### [address] [place] [address] [place] Hepatic Panelon 04-19-2021 Albumin [Mass/Vol] 3.9 g/dL Normal 3.2-5.5 [facility] Comment on above: Performed By: #### H EPATIC, BMP, LIPASE #### [address] Albumin/Globulin [Mass ratio] 1.3 {ratio} Normal [facility] Comment on above: Performed By: #### H EPATIC, BMP, LIPASE #### [address] ALP [Catalytic activity/Vol] 49 U/L Normal 32-92 [facility] Comment on above: Performed By: #### H EPATIC, BMP, LIPASE #### [address] ALT [Catalytic activity/Vol] 14 U/L Normal 10-60 [facility] Comment on above: Performed By: #### H EPATIC, BMP, LIPASE #### [address] AST [Catalytic activity/Vol] 20 U/L Normal 10-42 [facility] Comment on above: Performed By: #### H EPATIC, BMP, LIPASE #### [address] Bilirubin [Mass/Vol] 0.5 mg/dL Normal 0.3-1.2 [facility] Comment on above: Performed By: #### H EPATIC, BMP, LIPASE #### [address] Bilirubin,Indirect Not performed Normal [facility] Comment on above: Performed By: #### H EPATIC, BMP, LIPASE #### [address] Bilirubin.indirect [Mass/Vol] mg/dL Normal 0.0-0.4 [facility] Comment on above: Performed By: #### H EPATIC, BMP, LIPASE #### [facility] [address] [place] [address] Globulin (S) [Mass/Vol] 3.0 g/dL Normal [facility] Comment on above: Performed By: #### H EPATIC, BMP, LIPASE #### [address] Protein [Mass/Vol] 6.9 g/dL Normal 6.1-7.9 [facility] Comment on above: Performed By: #### H EPATIC, BMP, LIPASE #### [address] Lipaseon 04-19-2021 Lipase [Catalytic activity/Vol] 30.0 U/L Normal 22-51 [facility] Comment on above: Result Comment: PERF ORMED BY: [place] [address] PATHOLOGIST SOFTWARE QA SYSTEM SPECIALIST ARLENE DENTON M.D. Performed By: #### H EPATIC, BMP, LIPASE #### [address] Lipid Panelon 04-19-2021 Cholesterol [Mass/Vol] 253 mg/dL High 140-200 [facility] Comment on above: Order Comment: 1756 IN ER PSW Result Comment: Chol less than 200 mg/dl low risk Chol 201-239 mg/dl borderline risk Chol 240 mg/dl and greater high risk Performed By: #### H EPATIC, BMP, LIPASE #### [address] Cholesterol in HDL [Mass/Vol] 31 mg/dL Low 35-85 [facility] Comment on above: Order Comment: 175 IN ER PSW Result Comment: HDL CHOL ATP-III CLASSIFICATION Cardiovascular Risk HDL > or equal to 60 mg/dL LOW HDL < 40 mg/dL HIGH Performed By: #### H EPATIC, BMP, LIPASE #### [facility] [address] [place] [address] Cholesterol.total/Cho lesterol in HDL [Mass ratio] 8.2 {ratio} Normal <5.0 [facility] Comment on above: Order Comment: 1757 IN ER PSW Performed By: #### H EPATIC, BMP, LIPASE #### [facility] [address] [place] [id number] [facility] LDL Cholesterol,Calculate d 173 mg/dL High 0-100 [facility] Comment on above: Order Comment: 1756 IN ER PSW Result Comment: LDL ATP III CLASSIFICATION LDL less than 100 mg/dL Optimal LDL 100-129 mg/dL Near or above optimal LDL 130-159 mg/dL Borderline high LDL 160-189 mg/dL High LDL greater than 189 mg/dL Very high Performed By: #### H EPATIC, BMP, LIPASE #### [facility] [address] Triglyceride w/Reflex 244 mg/dL High 35-149 [facility] Comment on above: Order Comment: 1756 IN ER PSW Result Comment: TRIG ATP III CLASSIFICATION TRIG less than 150 mg/dL Normal TRIG 150-199 mg/dL Borderline high TRIG 200-500 mg/dL High TRIG greater than 500 mg/dL Very high Standard traceable to the Center for Disease Conrtrol and Prevention (CDC) test method. Performed By: #### H EPATIC, BMP, LIPASE #### [facility] [address] VLDL CHOLESTEROL 48 mg/dL Normal [facility] Comment on above: Order Comment: 1756 IN ER PSW Performed By: #### H EPATIC, BMP, LIPASE #### [facility] [address] [place] [id number] [facility] Magnesiumon 04-19-2021 Magnesium [Mass/Vol] 1.9 mg/dL Normal 1.6-2.6 [facility] Comment on above: Order Comment: ADD O N PER ER 1635 AW Performed By: #### H EPATIC, BMP, LIPASE #### [facility] [address] [place] [address] [place] Partial Thromboplastin Timeo n 04-19-2021 aPTT Coag (Bld) [Time] 28.8 s Normal 25.1-36.5 [facility] Comment on above: Result Comment: PERF ORMED BY: [place] [address] PATHOLOGIST SOFTWARE QA SYSTEM SPECIALIST ARLENE DENTON M.D. Performed By: #### C KMB, HS TROP, BNP, CBC, PT, PTT, CK #### [facility] [address] [place] [address] [place] Phosphoruson 04-19-2021 Phosphate [Mass/Vol] 3.6 mg/dL Normal 2.5-4.6 [facility] Comment on above: Order Comment: 1757 IN ER PSW Performed By: #### H EPATIC, BMP, LIPASE #### [facility] [address] Prothrombin Time INRon 04-19 INR Coag (PPP) [Relative time] 1.0 {INR} Normal [facility] Comment on above: Result Comment: INR Therapeutic Range A) Pre- and Peroperative OAT started two weeks before surgery. NOT HIP SURGERY: 1.5 - 2.5 HIP SURGERY: 2 - 3 B) Primary and secondary prevention of venous THROMBOSIS: 2 - 3 C) Active venous thrombosis, pulmonary embolism and prevention of recurrent venous thrombosis: 2 - 3 D) Prevention of arterial thromboembolism including patients with mechanical heart valves: 3 - 4.5 Performed By: #### C KMB, HS TROP, BNP, CBC, PT, PTT, CK #### [facility] [address] PT Coag (PPP) [Time] 11.6 s Normal 9.0-12.9 [facility] Comment on above: Performed By: #### C KMB, HS TROP, BNP, CBC, PT, PTT, CK #### [facility] [address] Thyroid Stimulating Hormoneo n 04-19-2021 TSH Qn 1.87 m[IU]/L Normal 0.45-5.33 [facility] Comment on above: Order Comment: ADD O N PER ER 1635 AW Result Comment: PERF ORMED BY: [place] [address] PATHOLOGIST SOFTWARE QA SYSTEM SPECIALIST ARLENE DENTON M.D. Performed By: #### H EPATIC, BMP, LIPASE #### [address] Troponin I High Sensitivityo n 04-19-2021 Troponin I High Sensitivity 4 pg/mL Normal 0-15 [facility] Comment on above: Result Comment: PERF ORMED BY: [place] [address] PATHOLOGIST SOFTWARE QA SYSTEM SPECIALIST ARLENE DENTON M.D. Performed By: #### H EPATIC, BMP, LIPASE #### [facility] [address] [place] [address] Urinalysison 04-19-2021 Appearance (U) Clear Normal Clear [facility] Comment on above: Order Comment: Name Collection Type:: Clean-Voided Midstream Performed By: #### H EPATIC, BMP, LIPASE #### [address] Bilirubin,Urine Negative Normal Negative [facility] Comment on above: Order Comment: Name Collection Type:: Clean-Voided Midstream Performed By: #### H EPATIC, BMP, LIPASE #### [address] Color (U) Yellow Normal Yellow [facility] Comment on above: Order Comment: Name Collection Type:: Clean-Voided Midstream Performed By: #### H EPATIC, BMP, LIPASE #### [facility] [address] [place] [address] Glucose Ql (U) 250 mg/dL High Normal [facility] Comment on above: Order Comment: Name Collection Type:: Clean-Voided Midstream Performed By: #### H EPATIC, BMP, LIPASE #### [facility] [address] [place] [address] Ketones Ql (U) Negative Normal Negative [facility] Comment on above: Order Comment: Name Collection Type:: Clean-Voided Midstream Performed By: #### H EPATIC, BMP, LIPASE #### [facility] [address] [place] [address] Leukocyte esterase Test strip Ql (U) Negative Normal Negative [facility] Comment on above: Order Comment: Name Collection Type:: Clean-Voided Midstream Performed By: #### H EPATIC, BMP, LIPASE #### [address] Nitrite,Urine Negative Normal Negative [facility] Comment on above: Order Comment: Name Collection Type:: Clean-Voided Midstream Performed By: #### H EPATIC, BMP, LIPASE #### [address] Occult Blood,Urine Negative Normal Negative [facility] Comment on above: Order Comment: Name Collection Type:: Clean-Voided Midstream Result Comment: PERF ORMED BY: [place] [address] PATHOLOGIST SOFTWARE QA SYSTEM SPECIALIST ARLENE DENTON M.D. Performed By: #### H EPATIC, BMP, LIPASE #### [address] pH (U) 5.0 [pH] Normal 5.0-9.0 [facility] Comment on above: Order Comment: Name Collection Type:: Clean-Voided Midstream Performed By: #### H EPATIC, BMP, LIPASE #### [address] Protein,Urine Negative Normal Negative [facility] Comment on above: Order Comment: Name Collection Type:: Clean-Voided Midstream Performed By: #### H EPATIC, BMP, LIPASE #### [address] Specificy [place],Urine 1.016 Normal 1.001-1.030 [facility] Comment on above: Order Comment: Name Collection Type:: Clean-Voided Midstream Performed By: #### H EPATIC, BMP, LIPASE #### [place] [address] [place] Urobilinogen,Urine Normal Normal Normal [facility] Comment on above: Order Comment: Name Collection Type:: Clean-Voided Midstream Performed By: #### H EPATIC, BMP, LIPASE #### [address] Vitamin D 25 Hydroxy Totalon 04-19-2021 Vitamin D 25 Hydroxy Total 18.6 ng/mL Low 30-100 [facility] Comment on above: Order Comment: 1757 IN ER PSW Result Comment: GRETA MIN D STATUS 25(OH)VITAMIN D RANGE (ng/mL) Deficient <20 Insufficient 20 to <30 Sufficient 30 to 100 Reference: Carlos Manuel MF,Shayan NC, Estefany MCKINLEY, et al. Evaluation,treatment, and prevention of vitamin D deficiency; an Endocrine Society clinical practice guideline. JCEM. 2010; 96(7):1911-30. PERFORMED BY: [place] [address] PATHOLOGIST SOFTWARE QA SYSTEM SPECIALIST ARLENE DENTON M.D. Performed By: #### H EPATIC, BMP, LIPASE #### [address] XR chest 1V portableon 04-19 XR chest 1V portable [facility] Main [place] [address] [place] [address] XRay Report Signed Patient: Ade Edmonds MR#: [id number] : 1955 Acct:[id number] Age/Sex: 65 / F ADM Date: 04/19/21 Loc: ER Room: Type: [facility] ER Attending Dr: Ordering Provider: Avtar Adler DO Date of Service: 04/19/21 XR/XR chest 1V portable: Arrhythmia/Palpitation s Copies to: Avtar Adler DO PORTABLE AP ERECT CHEST 1819 hours CLINICAL HISTORY: Patient went into pulseless V. Tach twice during outpatient shoulder surgery today. COMPARISON: None A large defibrillator pad overlies the right mid chest. There is moderate elevation of the right hemidiaphragm. No focal consolidation, pleural effusion or pneumothorax is identified. The heart is top normal in size. There is no suspected vascular congestion. There is slight levoscoliotic curvature and mild endplate spurring. XR/XR chest 1V portable IMPRESSION: ELEVATED RIGHT HEMIDIAPHRAGM. NO OTHER ACUTE FINDINGS. Impression dictated by: Annie Velasquez M.D.04/19/2021 3:51 PM Dictation Location: [place] [address] Transcribed By: [facility] 04/19/21 1551 Dictated By: Annie Velasquez MD 04/19/21 1550 Signed By: 04/19/21 1551 [facility] Vital Signs Date Time Vital Sign Value Performing Clinician Facility 12-24-2023 09:35-0400 Body height 164.5 cm Salbador Luna DO Work Phone: [facility] 12-24-2023 09:35-0400 Body mass index (BMI) [Ratio] 25.83 kg/m2 Salbador Luna DO Work Phone: [facility] 12-24-2023 09:35-0400 Body weight 69.85 kg Salbador Luna DO Work Phone: [facility] 12-24-2023 09:35-0400 Diastolic blood pressure 80 mm[Hg] Salbador Luna DO Work Phone: [facility] 12-24-2023 09:35-0400 Heart rate 68 /min Salbador Luna DO Work Phone: [facility] 12-24-2023 09:35-0400 SaO2% (BldA) [Mass fraction] 98 % Salbador Luna DO Work Phone: [facility] 12-24-2023 09:35-0400 Systolic blood pressure 138 mm[Hg] Salbador Luna DO Work Phone: [facility] 12-14-2023 09:55-0400 Body height 164.5 cm Sis Hansen CUSTOMER SERVICE TELLER Work Phone: [facility] 12-14-2023 09:55-0400 Body mass index (BMI) [Ratio] 25.62 kg/m2 Sis Hansen CUSTOMER SERVICE TELLER Work Phone: [facility] 12-14-2023 09:55-0400 Body weight 69.31 kg Sis Hansen CUSTOMER SERVICE TELLER Work Phone: [facility] 12-14-2023 09:55-0400 Diastolic blood pressure 80 mm[Hg] Sis Hansen CUSTOMER SERVICE TELLER Work Phone: [facility] 12-14-2023 09:55-0400 Heart rate 85 /min Sis Hansen CUSTOMER SERVICE TELLER Work Phone: [facility] 12-14-2023 09:55-0400 SaO2% (BldA) [Mass fraction] 98 % Sis Hansen CUSTOMER SERVICE TELLER Work Phone: [facility] 12-14-2023 09:55-0400 Systolic blood pressure 118 mm[Hg] Sis Hansen CUSTOMER SERVICE TELLER Work Phone: [facility] 05-11-2021 08:00-0400 74 1 Sandra Maxwell Work Phone: [facility] DO Work Phone: Comment on above: [id number] 09-08-2019 15:29-0400 BMI (Body Mass Index) 22.9 kg/m2 [facility] Work Phone: Comment on above: self 09-08-2019 15:29-0400 Body weight 66.23 kg [facility] Work Phone: Comment on above: self 09-08-2019 15:29-0400 BSA (Body Surface Area) 1.77 m2 [facility] Work Phone: Comment on above: self 09-08-2019 15:29-0400 Height 170.18 cm [facility] Work Phone: Comment on above: self Encounters Encounter Date Encounter Type Care Provider Facility Start: 01-14-2024 End: 01-14-2024 Emergency department patient visit [facility] Start: 12-27-2023 End: 12-27-2023 ambulatory SIS HANSEN Not Available Start: 12-24-2023 End: 12-24-2023 Bamboo flowsheet Salbador Luna DO Work Phone: [facility] Start: 12-24-2023 End: 12-24-2023 Bamboo flowsheet Salbador Luna DO Work Phone: [facility] Start: 12-24-2023 End: 12-24-2023 Patient encounter procedure Salbador Luna DO Work Phone: [facility] Comment on above: Personal history of colon polyps, unspecified (Primary Dx) Start: 12-24-2023 End: 12-24-2023 ambulatory SALBADOR LUNA Not Available Start: 12-21-2023 End: 12-21-2023 Telephone encounter Laura Ladd MA [facility] Start: 12-14-2023 End: 12-14-2023 Bamboo flowsheet Sis Fabianmehdirajesh CUSTOMER SERVICE TELLER Work Phone: [facility] Start: 12-14-2023 End: 12-14-2023 Bamboo flowsheet Sis Fabianmehdirajesh CUSTOMER SERVICE TELLER Work Phone: [facility] Start: 12-14-2023 End: 12-14-2023 Patient encounter status Sis Fabianmehdirajesh CUSTOMER SERVICE TELLER Work Phone: [facility] Start: 12-14-2023 End: 12-14-2023 Periodic preventive med est patient 65yrs& older Sis Fabianmehdirajesh CUSTOMER SERVICE TELLER Work Phone: [facility] Comment on above: Spinal stenosis of l umbar region without neurogenic claudication (Primary Dx); Panic attacks (CMS/HCC); Anxiety; Tubular adenoma; History of colon polyps; Osteopenia, unspecified location; Prediabetes; Encounter for wellness examination; Screening mammogram for breast cancer; Mixed dyslipidemia (CMS/HCC); Acquired hypothyroidism (CMS/HCC); Personal history of nicotine dependence; Primary hypertension (CMS/HCC) Start: 12-14-2023 End: 12-14-2023 ambulatory SIS HANSEN Not Available Start: 11-15-2023 End: 11-15-2023 ambulatory NEGRITO CROOK Not Available Start: 11-05-2023 End: 11-05-2023 ambulatory SIS FABIANMehdiRAJESH Not Available Start: 09-27-2023 End: 10-28-2023 [facility] Start: 09-19-2023 End: 09-19-2023 Emergency department patient visit BARRY PELAYO [facility] Start: 08-27-2023 End: 09-27-2023 ambulatory [facility] Start: 08-07-2023 Chart abstracting Unk Pcp (Brent) Amira lees Start: 07-31-2023 End: 08-27-2023 ambulatory [facility] Start: 07-28-2023 End: 07-28-2023 ambulatory [facility] Start: 07-11-2023 End: 07-12-2023 ambulatory [facility] Start: 07-05-2023 End: 07-05-2023 ambulatory [facility] Start: 06-24-2023 End: 06-24-2023 Emergency department patient visit IRVING Barroso [facility] Start: 05-17-2021 Chart Update Sandra Rodriguez lag Work Phone: [facility] 250 DO Work Phone: Start: 05-11-2021 Patient encounter procedure Sandra Masg Work Phone: [facility] DO Work Phone: Start: 04-21-2021 AUDIT Que Mcfarland n DO Work Phone: [facility] 250 DO Work Phone: Start: 04-19-2021 End: 04-20-2021 ambulatory Andrews Bustillos Facility:[facility] Start: 09-08-2019 End: 09-08-2019 Telemedicine consultation with patient Dary Duarte Work Phone: [facility] Work Phone: Procedures Date Procedure Procedure Detail Performing Clinician Start: 06-02-2022 Mammography Sis webb CUSTOMER SERVICE TELLER Work Phone: Start: 03-15-2020 Colonoscopy Sis webb CUSTOMER SERVICE TELLER Work Phone: Plan of Treatment Date Care Activity Detail Author Start: 03-15-2030 Screening for malign ant neoplasm of colon [facility] Start: 06-13-2024 End: 06-13-2024 Patient encounter procedure 06/13/2024 10:00 AM EDT Office Visit [facility] [address] [place] [address] ShantalSis webb, CUSTOMER SERVICE TELLER [address] [place] [address] [facility] Start: 02-08-2024 Influenza vaccination Influenza Vacc ine (#1) [facility] Comment on above: Postponed from 10/27 (Patient Refused) Start: 12-27-2023 End: 12-27-2023 Professional / ancillary services management [facility] Start: 12-24-2023 End: 12-24-2023 Patient encounter procedure [facility] Comment on above: Arrived Start: 12-14-2023 End: 12-13-2024 Comprehensive metabolic 2000 panel - Serum or Plasma Comprehensive metabolic panel Lab Routine Encounter for wellness examination Expected: 12/14/2023 (Approximate), Expires: 12/13/2024 [facility] Comment on above: Expected: 12/14/2023 (Approximate), Expires: 12/13/2024 Start: 12-14-2023 End: 12-13-2024 CT Chest for screening WO contrast CT lung screening low dose Imaging Routine Personal history of nicotine dependence Expected: 12/14/2023, Expires: 12/13/2024 [facility] Comment on above: Expected: 12/14/2023 , Expires: 12/13/2024 Start: 12-14-2023 End: 02-12-2025 DBT Breast - bilateral screening Bilateral screening mammogram with tomosynthesis Imaging Routine Screening mammogram for breast cancer Expected: 12/14/2023, Expires: 02/12/2025 [facility] Work Phone: Comment on above: Expected: 12/14/2023 , Expires: 02/12/2025 Start: 12-14-2023 End: 12-13-2024 Hemoglobin A1c/Hemoglobin.total in Blood Hemoglobin A1c Lab Routine Prediabetes Encounter for wellness examination Expected: 12/14/2023 (Approximate), Expires: 12/13/2024 [facility] Comment on above: Expected: 12/14/2023 (Approximate), Expires: 12/13/2024 Start: 12-14-2023 End: 12-13-2024 Lipid 1996 panel - Serum or Plasma Lipid panel Lab Routine Encounter for wellness examination Mixed dyslipidemia (CMS/HCC) Expected: 12/14/2023 (Approximate), Expires: 12/13/2024 [facility] Comment on above: Expected: 12/14/2023 (Approximate), Expires: 12/13/2024 Start: 12-14-2023 End: 12-13-2024 TSH W/REFLEX TO FT4 TSH W/REFLEX TO FT4 Lab Routine Acquired hypothyroidism (CMS/HCC) Expected: 12/14/2023 (Approximate), Expires: 12/13/2024 [facility] Comment on above: Expected: 12/14/2023 (Approximate), Expires: 12/13/2024 Start: 12-14-2023 End: 12-14-2023 Patient encounter procedure 12/14/2023 10:00 AM EDT Office Visit [facility] [address] [place] [id number] iSs Hansen NP [address] [place], [place] [id number] Arrived [facility] Comment on above: Arrived Start: 10-28-2023 Influenza vaccination C [facility] Start: 06-03-2023 Screening for malign ant neoplasm of breast [facility] Start: 02-26-2023 Advance Directive Discussion Advance Directive Discussion [facility] Start: 02-26-2023 Behavioral Health Screening Behavioral Health Screening [facility] Start: 10-27-2022 Covid-19 Vaccine ( season) Covid-19 Vaccine ( season) [facility] Start: 2022 Pneumococcal Vaccine : 65+ (1 of 1 - PCV) Pneumococcal Vaccine: 65+ (1 of 1 - PCV) [facility] Start: 05-30-2021 FUV, Provider: Deborah Cm, Status: Pen, Time: 8:30 AM FUV, Provider: Deborah Cm, Status: Pen, Time: 8:30 AM [facility] DO Work Phone: Start: 05-18-2021 FUV, Provider: Deborah Cm, Status: Pen, Time: 10:00 AM FUV, Provider: Deborah Cm, Status: Pen, Time: 10:00 AM [facility] 250 DO Work Phone: Start: 05-11-2021 STRESS NUC, Provider : JENIFER HHVI NUCLEAR 01,[id number], Status: Pen, Time: 8:00 AM STRESS NUC, Provider: JENIFER HHVI NUCLEAR 01,[id number], Status: Pen, Time: 8:00 AM [facility] DO Work Phone: Start: 10-08-2019 _SARS-CoV-2 COVID19 [facility] Work Phone: Start: 09-09-2019 COVID Drive up Testing [facility] Work Phone: Start: 2017 RSV Vaccine (1 - 1-d ose 60+ series) RSV Vaccine (1 - 1-dose 60+ series) [facility] Start: 06-10-2010 Diabetes Screening Diabetes Screenin g [facility] Start: 09-25-2007 Shingrix Vaccine (1 of 2) Shingrix Vaccine (1 of 2) [facility] Start: 2002 Lipid panel Lipid Screening [facility] Start: 2002 Screening for malign ant neoplasm of colon [facility] Start: 1976 Urine microalbumin profile DTaP,Tdap,Td Vaccine (1 - Tdap) [facility] Start: 09-25-1975 Hepatitis C screening Hepatitis C Sc francisco [facility] Start: 09-25-1975 HIV screening HIV Screening [facility] Start: 09-25-1963 Pneumococcal Vaccine : 65+ Years (1 of 2 - PCV) Pneumococcal Vaccine: 65+ Years (1 of 2 - PCV) [facility] Start: 1957 Screening for malign ant neoplasm of colon [facility] Immunizations Immunization Date Immunization Notes Care Provider Fa ismael 05-23-2022 tetanus toxoid, redu amanda diphtheria toxoid, and acellular pertussis vaccine, adsorbed Sis Hansen NP Work Phone: [facility] Payers Date Payer Category Payer Worker's Compensation [id number] Unknown 2021 Private Health Insurance [employer] [id number] 2021 Unknown [id number] 2021 Self-pay 2018 Unknown [id number] [id number] .[id number] 1955 Unknown [id number] 2.840.1.612941.3.579.2 .1285 1955 Unknown [id number] 2.16.840.1.894543.3.579.2 .1285 1957 Unknown [id number] 2.16.840.1.845192.3.579.2 .1285 1957 Unknown [id number] 2.16.840.1.076859.3.579.2 .1285 1957 Unknown [id number] 2.16.840.1.162316.3.579.2 .1258 1955 Unknown [id number] 2.16.840.1.717256.3.579.2 .1258 1957 Unknown [id number] 2.16.840.1.621302.3.579.2 .1259 1957 Unknown [id number] 2.16.840.1.483930.3.579.2 .1258 1955 Unknown [id number] 2.16.840.1.653338.3.579.2 .9 1957 Unknown [id number] 2.16.840.1.016233.3.579.2 .1258 1955 Unknown [id number] 2.16.840.1.189782.3.579.2 .1285 1957 Unknown [id number] 2.16.840.1.656941.3.579.2 .1285 1957 Unknown [id number] 2.16.840.1.892358.3.579.2 .1285 1957 Unknown [id number] 2.16.840.1.664513.3.579.2 .1285 1957 Unknown [id number] 2.16.840.1.035199.3.579.2 .1285 1957 Unknown [id number] 2.16.840.1.517548.3.579.2 .1285 1955 Unknown [id number] 2.16.840.1.529615.3.579.2 .1286 Unknown [id number] 2.840.1.041775.3.579.2 .531 Social History Date Type Detail Facility Tobacco smoking status Unknown i f ever smoked [facility] Work Phone: Start: 06-11-2007 End: 11-15-2023 Tobacco smoking status NCIS Smokes tobacco daily [facility] History of tobacco use Cigarette Smoker C [facility] Start: 06-11-2007 End: 10-29-2023 Cigarettes smoked current (pack per day) - Reported 1 [facility] Start: 06-11-2007 Alcohol intake Current non-dr inhalation therapy aide of alcohol (finding) [facility] Start: 1955 Sex Assigned At Not on file [facility] Start: 10-29-2023 End: 12-14-2023 Gender identity Not on file [facility] Start: 11-15-2023 Tobacco use and exposure Smoke less tobacco non-user [facility] Start: 11-15-2023 End: 12-14-2023 Alcoholic beverage intake Ex-drinker (finding) [facility] How often do you nee d to have someone help you when you read instructions, pamphlets, or other written material from your doctor or pharmacy [SILS] Never [facility] Do you belong to any clubs or organizations such as pentecostalism groups, unions, fraternal or athletic groups, or school groups? Yes [facility] Are you now , , , , never or living with a partner? [facility] How often to you hav e a drink containing alcohol? Never [facility] How hard is it for y ou to pay for the very basics like food, housing, medical care, and heating Not very hard [facility] Do you feel stress - tense, restless, nervous, or anxious, or unable to sleep at night because your mind is troubled all the time - these days [OSQ] To some extent [facility] (I/We) worried wheth er (my/our) food would run out before (I/we) got money to buy more. Never true [facility] In the past 12 month s, was there a time when you were not able to pay the mortgage or rent on time? No [facility] Start: 11-05-2023 Tobacco Comment Smokes 5 daily. [facility] Start: 11-15-2023 Alcohol Comment Caffine: 4 cups jaylan y [facility] Mental Status Date Assessment Result Facility Cognitive function No anxiety Anxiety (fi nding) [facility] Work Phone: Clinical Notes 08-07-2023 to 12-24-2023 Salbador Luna DO - 12/24/2023 9:30 AM EDTTelephone Encounter - Santiago Solis - 12/21/2023 11:29 AM EDTTelephone Encounter - Santiago Solis - 12/21/2023 11:29 AM Zoya Hansen NP - 12/14/2023 10:00 AM EDT Note Date & Type Note Facility 12-24-2023 History of Present illness Narrative General Surgery H&P Ade Edmonds 1955 Ade Edmonds is a 68 y.o. female presents for Colonoscopy (Pt presents today for a colonoscopy consult. Pt denies/admits to: has having a colonoscopy before. Last colonoscopy they removed 6 polyps and it was 3 years ago. Pt denies abdominal pain. Pt denies rectal bleeding. Pt denies changes in bowel movements. Pt admits to a family history of colon cancer that they know of. Pt denies any concern today. Patient's daughter has/had colon cancer requiring a resection.) Denies melena or hematochezia. Denies changes in bowel habits. Denies changes in caliber of stools. Denies hx of unplanned weight loss. Denies fevers, chills, or sweats. Denies nausea or vomiting. Last colonoscopy was 2020. SUBJECTIVE: MEDICATIONS: ALLERGIES Current Outpatient Medications Medication Instructions bisacodyl (DULCOLAX) 5 mg, Oral, Once, Do not crush, chew, or split. Take as detailed on clinic hand out for colonoscopy prep DULoxetine (CYMBALTA) 30 mg, Oral, Daily, Do not crush or chew. EPINEPHrine (EPIPEN) 0.3 mg, Daily PRN hydrOXYzine HCl (ATARAX) 25 mg, Every 6 hours PRN omega-3 (fish oil) 1000 MG capsule 1 capsule, Every 24 hours polyethylene glycol (PEG) 3350 (GLYCOLAX) 238 g, Oral, Once, Take as detailed from clinic hand out for colonoscopy prep Synthroid 50 MCG tablet Every 24 hours Allergies Allergen Reactions Bee Venom Anaphylaxis Phzukkovfqjejjb-Af-Xn-Apap Causes HTN PAST MEDICAL HISTORY: SOCIAL HISTORY SURGICAL HISTORY: Past Medical History: Diagnosis Date Allergic Anxiety Arthritis Depression (CMS/HCC) Eczema GERD (gastroesophageal reflux disease) Hyperlipidemia (CMS/HCC) Hypertension (CMS/HCC) Hypothyroid (CMS/HCC) HZV (herpes zoster virus) post herpetic neuralgia (CMS/HCC) Osteopenia Peripheral neuropathy Prediabetes Shingles Social History Tobacco Use Smoking status: Every Day Current packs/day: 0.50 Average packs/day: 0.5 packs/day for 15.0 years (7.5 ttl pk-yrs) Types: Cigarettes Smokeless tobacco: Never Tobacco comments: Smokes 5 daily. Vaping Use Vaping status: Never Used Substance Use Topics Alcohol use: Not Currently Comment: Caffine: 4 cups daily Drug use: Never Past Surgical History: Procedure Laterality Date HYSTERECTOMY 1997 MT KNEE SCOPE,CLEAN/DRAIN Right 2000 MT KNEE SCOPE,CLEAN/DRAIN Right 12/24/2020 MT TONSILLECTOMY & ADENOIDECTOMY <AGE 14 ROTATOR CUFF REPAIR Right 2022 Family History Problem Relation Name Age of Onset Hyperlipidemia Mother Lung cancer Father Maylin Edmonds Alcohol abuse Father Maylin Edmonds Cancer Father Maylin Edmonds Diabetes Maternal Grandmother Allergies Allergen Reactions Bee Venom Anaphylaxis Dyfmilqworoulnk-Cn-Wo-Apap Causes HTN Past Surgical History: Procedure Laterality Date HYSTERECTOMY 1997 MT KNEE SCOPE,CLEAN/DRAIN Right 2000 MT KNEE SCOPE,CLEAN/DRAIN Right 12/24/2020 MT TONSILLECTOMY & ADENOIDECTOMY <AGE 12 ROTATOR CUFF REPAIR Right 2022 Tobacco Use: High Risk (12/14/2023) Patient History Smoking Tobacco Use: Every Day Smokeless Tobacco Use: Never Passive Exposure: Not on file Alcohol Use: Not At Risk (10/29/2023) AUDIT-C Frequency of Alcohol Consumption: Never Average Number of Drinks: Patient does not drink Frequency of Binge Drinking: Never Depression: Not at risk (12/14/2023) PHQ-2 PHQ-2 Score: 0 Physical Activity: Inactive (10/29/2023) Exercise Vital Sign Days of Exercise per Week: 0 days Minutes of Exercise per Session: 0 min REVIEW OF SYMPTOMS: Review of Systems All other systems reviewed and are negative. 10 systems were reviewed. Positives noted above. Remainder are negative per CMS guidelines. OBJECTIVE: Visit Vitals BP 138/80 Pulse 68 Ht 5' 4.75 Wt 154 lb SpO2 98% BMI 25.83 kg/m Smoking Status Every Day BSA 1.79 m Physical Exam Vitals reviewed. General: AAOx3, NAD Head: atraumatic normocephalic Neck: trachea midline. No masses or lymphadenopathy Heart: Regular rate and rhythm Lungs: equal chest rise and fall, non labored breathing Abdomen: soft, nontender, and non distended Ext: motor 5/5 all extremities with no gross deformities Psych: alert and oriented, behavior appropriate ASSESSMENT AND PLAN: Assessment/Plan Diagnoses and all orders for this visit: Personal history of colon polyps, unspecified - bisacodyl (Dulcolax) 5 MG EC tablet; Take 1 tablet (5 mg) by mouth 1 time for 1 dose Do not crush, chew, or split. Take as detailed on clinic hand out for colonoscopy prep - polyethylene glycol, PEG, 3350 (Glycolax) 17 GM/SCOOP powder; Take 238 g by mouth 1 (one) time for 1 dose Take as detailed from clinic hand out for colonoscopy prep Plan: Patient is average risk for colon cancer. Colonoscopy can be scheduled electively. Patient informed of the risks of procedure which include but not limited to bleeding, perforation, and risks of anesthesia. Patient understood risks and signed informed consent for the procedure under monitored anesthesia care. Handout for bowel prep provided in clinic. Patient was informed of the need for a ride home from the hospital and the need for someone to be with them for the following 24 hrs post procedure. Thank you, Billy Luna DO documented in this encounter [facility] 12-21-2023 Telephone encounter Note Spoke izzy Sen - she said she wasn't fasting for Labs that were taken. Ate prior to appt and had cake and ice cream night before . [phone] [facility] 12-21-2023 Miscellaneous Notes Spoke izzy Sen - she said she wasn't fasting for Labs that were taken. Ate prior to appt and had cake and ice cream night before . [phone] Enrriquet Message from Sis: Your cholesterol very high. Recommend starting a statin to help decrease your risk for having cardiovascular event like a stroke or heart attack. If agreeable will need to check ALT/AST in 6 weeks and repeat lipid in 3 months. Recommend low cholesterol/fat diet, increase physical exercise. Prediabetic range but stable. Let me know if agreeable to starting statin medication and I will send in prescription for you. documented in this encounter [facility] 12-21-2023 Telephone encounter Note Enrriquet Message from Sis: Your cholesterol very high. Recommend starting a statin to help decrease your risk for having cardiovascular event like a stroke or heart attack. If agreeable will need to check ALT/AST in 6 weeks and repeat lipid in 3 months. Recommend low cholesterol/fat diet, increase physical exercise. Prediabetic range but stable. Let me know if agreeable to starting statin medication and I will send in prescription for you. [facility] 12-14-2023 History of Present illness Narrative Images from the original note were not included. Ade Edmonds is a 68 y.o. female presents with chief complaint of medication follow up HPI: HPI Presents to the office for 6 week follow-up. AT last visit was started on duloxetine, feels like she is more calmer since she started it. Feels it may have helped some with the pain going down in her leg but not much. She had injections done last week, states it helped for about 3 hours, is scheduled with pain management for ablation. Smokes about 5 cigarettes a day max. Feels she could probably quit but can't imaging drinking her morning cup of coffee without smoking a cigarette. Driving school buses still. Over the past 2 weeks, how often have you been bothered by any of the following problems? Little interest or pleasure in doing things: Not at all Feeling down, depressed, or hopeless: Not at all Trouble falling or staying asleep, or sleeping too much: Nearly every day Feeling tired or having little energy: Not at all Poor appetite or overeating: Not at all Feeling bad about yourself - or that you are a failure or have let yourself or your family down: Not at all Trouble concentrating on things, such as reading the newspaper or watching television: Not at all Moving or speaking so slowly that other people could have noticed? Or the opposite - being so fidgety or restless that you have been moving around a lot more than usual.: Not at all Thoughts that you would be better off or hurting yourself in some way: Not at all Patient Health Questionnaire-9 Score: 3 Over the last 2 weeks, how often have you been bothered by any of the following problems? Feeling nervous, anxious, or on edge: Several days Not being able to stop or control worrying: Not at all Worrying too much about different things: Nearly every day Trouble relaxing: Not at all Being so restless that it is hard to sit still: Several days Becoming easily annoyed or irritable: Not at all Feeling afraid as if something awful might happen: Not at all CYNTHIA-7 Total Score: 5 SUBJECTIVE: MEDICATIONS: Current Outpatient Medications Medication Instructions DULoxetine (CYMBALTA) 30 mg, Oral, Daily, Do not crush or chew. EPINEPHrine (EPIPEN) 0.3 mg, Daily PRN hydrOXYzine HCl (ATARAX) 25 mg, Every 6 hours PRN omega-3 (fish oil) 1000 MG capsule 1 capsule, Every 24 hours Synthroid 50 MCG tablet Every 24 hours REVIEW OF SYMPTOMS: Review of Systems Constitutional: Negative. HENT: Negative. Eyes: Negative. Respiratory: Negative. Cardiovascular: Negative. Gastrointestinal: Negative. Genitourinary: Negative. Musculoskeletal: Negative. Skin: Negative. Neurological: Negative. OBJECTIVE: Visit Vitals BP 118/80 (BP Location: Left arm, Patient Position: Sitting, BP Cuff Size: Adult) Pulse 85 Ht 5' 4.75 Wt 152 lb 12.8 oz SpO2 98% BMI 25.62 kg/m Smoking Status Every Day BSA 1.78 m Physical Exam Vitals reviewed. Constitutional: Appearance: Normal appearance. HENT: Head: Normocephalic and atraumatic. Right Ear: Tympanic membrane normal. Left Ear: Tympanic membrane normal. Nose: Nose normal. Mouth/Throat: Mouth: Mucous membranes are moist. Eyes: Extraocular Movements: Extraocular movements intact. Pupils: Pupils are equal, round, and reactive to light. Cardiovascular: Rate and Rhythm: Normal rate and regular rhythm. Pulses: Normal pulses. Heart sounds: Normal heart sounds. Pulmonary: Effort: Pulmonary effort is normal. Breath sounds: Normal breath sounds. Abdominal: General: Bowel sounds are normal. Palpations: Abdomen is soft. Tenderness: There is no abdominal tenderness. Musculoskeletal: General: Normal range of motion. Cervical back: Normal range of motion and neck supple. Right lower leg: No edema. Left lower leg: No edema. Skin: General: Skin is warm and dry. Capillary Refill: Capillary refill takes less than 2 seconds. Findings: No rash. Neurological: General: No focal deficit present. Mental Status: She is alert and oriented to person, place, and time. ASSESSMENT AND PLAN: Assessment/Plan Diagnoses and all orders for this visit: Spinal stenosis of lumbar region without neurogenic claudication -Followed by pain management. Panic attacks (CMS/HCC) -Continue duloxetine Anxiety -Continue duloxetine Tubular adenoma - Ambulatory referral to General Surgery; Future -Due for scope History of colon polyps - Ambulatory referral to General Surgery; Future Osteopenia, unspecified location -Recommend calcium 1200mg/day and vitamin d at least 800 units/day supplementation OTC daily. Encourage weight bearing physical exercise like walking to help strengthen bones. Prediabetes - Hemoglobin A1c; Future -Check A1c, encourage healthy eating habits. Keep active. Encounter for wellness examination - Hemoglobin A1c; Future - Lipid panel; Future - Comprehensive metabolic panel; Future -Wellness performed at today. Height, weight, BMI, problem list, and immunizations records reviewed. Dental care discussed with patient. Encouraged annual vision screenings and semi-annual dental care. Encouraged healthy eating habits, limit or eliminate junk food and sources of excess calories. Encouraged regular periods of exercise, 150 minutes of exercise weekly or amount appropriate to current level of function. Discussed family/friend/social support and importance of maintaining emotional connections. Follow up annually and as needed. -Recommend pneumonia vaccine, she refuses. Screening mammogram for breast cancer - Bilateral screening mammogram with tomosynthesis; Future Mixed dyslipidemia (CMS/HCC) - Lipid panel; Future -Check lipid panel Acquired hypothyroidism (CMS/HCC) - TSH W/REFLEX TO FT4; Future -On synthroid Personal history of nicotine dependence - CT lung screening low dose; Future -Encouraged cessation. Discussed possible halfway consequences r/t smoking to include COPD and lung cancer. Discussed possible medication options to help with cessation to include wellbutrin, chantix, and nicotine gum/patches. Primary Hypertension -Stable with lifestyle modifications documented in this encounter [facility] 08-10-2023 Note HNO ID: [id number] Author: LIYA PEREZ PA-C Service: ? Author Type: Physician Wash Crew Person Type: Progress Notes Filed: 08/10/2023 11:55 Note Text: Per Triage: Francy Edmonds is a 67 year old female that requests evaluation of spine. Per review, they have symptoms of lower back pain , left leg pain. Difficulty walking. Weakness left leg. Request: 1st available Referring provider: none Patient out of state: no 2nd opinion: no Prior spine surgery: no CMT: Tylenol IBU Studies (Reports unless indicated) MRI lumbar spine report 07/28/23: Vertebral body heights and alignment are maintained of the lumbar spine. Normal lumbar lordosis. Homogeneous marrow signal. Multilevel degenerative disc disease. No significant STIR abnormality is present within the lumbar spine. Paraspinal musculature and partially visualized abdomen are within normal limits. Conus medullaris extends to the L1 level normal limits. T11-T12: Mild broad-based disc bulge, no spinal canal or neuroforaminal narrowing. T12-L1: Mild broad-based disc bulge, no significant spinal canal narrowing, mild bilateral neural foraminal narrowing. L1-L2: No significant spinal canal or neuroforaminal narrowing. L2-L3: Broad-based disc bulge, facet arthropathy and ligamentum flavum thickening causing mild spinal canal narrowing and moderate bilateral neural foraminal narrowing. L3-L4: Broad-based disc bulge, facet arthropathy and ligamentum flavum thickening causing minimal spinal canal narrowing, moderate bilateral neural foraminal narrowing. L4-L5: Broad-based disc bulge facet arthropathy causing no significant spinal canal narrowing, moderate left and mild right neural foraminal narrowing. L5-S1: No significant spinal canal narrowing. Severe right and moderate left neural foraminal narrowing. Lumbar xray report 07/11/23: Advanced multilevel degenerative disc disease with disco loss of amplitude degenerative changes and facet hypertrophy. No significant movement with flexion or extension. Disposition: Based on triage, recommend patient be scheduled with medical spine provider - interventionalist for trial of conservative treatment - injections If patient would like sooner appointment, is it okay to offer appointment with spine surgical SHOIAB No (If patient is okay to see first available surgeon, please specify dx to aid in appropriate scheduling, such as ?cervical degenerative disease,? ?scoliosis?) Liya Perez PA-C [facility] 08-10-2023 History of Present illness Narrative Per Triage: Francy Edmonds is a 67 year old female that requests evaluation of spine. Per review, they have symptoms of lower back pain , left leg pain. Difficulty walking. Weakness left leg. Request: 1st available Referring provider: none Patient out of state: no 2nd opinion: no Prior spine surgery: no CMT: Tylenol IBU Studies (Reports unless indicated) MRI lumbar spine report 07/28/23: Vertebral body heights and alignment are maintained of the lumbar spine. Normal lumbar lordosis. Homogeneous marrow signal. Multilevel degenerative disc disease. No significant STIR abnormality is present within the lumbar spine. Paraspinal musculature and partially visualized abdomen are within normal limits. Conus medullaris extends to the L1 level normal limits. T11-T12: Mild broad-based disc bulge, no spinal canal or neuroforaminal narrowing. T12-L1: Mild broad-based disc bulge, no significant spinal canal narrowing, mild bilateral neural foraminal narrowing. L1-L2: No significant spinal canal or neuroforaminal narrowing. L2-L3: Broad-based disc bulge, facet arthropathy and ligamentum flavum thickening causing mild spinal canal narrowing and moderate bilateral neural foraminal narrowing. L3-L4: Broad-based disc bulge, facet arthropathy and ligamentum flavum thickening causing minimal spinal canal narrowing, moderate bilateral neural foraminal narrowing. L4-L5: Broad-based disc bulge facet arthropathy causing no significant spinal canal narrowing, moderate left and mild right neural foraminal narrowing. L5-S1: No significant spinal canal narrowing. Severe right and moderate left neural foraminal narrowing. Lumbar xray report 07/11/23: Advanced multilevel degenerative disc disease with disco loss of amplitude degenerative changes and facet hypertrophy. No significant movement with flexion or extension. Disposition: Based on triage, recommend patient be scheduled with medical spine provider - interventionalist for trial of conservative treatment - injections If patient would like sooner appointment, is it okay to offer appointment with spine surgical SHOAIB No (If patient is okay to see first available surgeon, please specify dx to aid in appropriate scheduling, such as cervical degenerative disease, scoliosis ) Liya Perez PA-C Patient name: Francy Edmonds Are you being referred by a [facility] Provider or Pain Management Provider at [facility]? No If answer is YES please schedule directly with surgeon, triage does not need to be completed. Is this a self-referral Yes If not, who is the Referring Provider Is this a 2nd opinion from another spine surgeon? No Were you offered surgery? No MRI/CT/myelogram within 12 months? Yes If NO , please refer to medical spine or PCP to complete above imaging, triage does not need to be completed If YES, please ask for the name/address of the facility where the MRI/CT/myelogram was completed: [address] [address] MRI/CT/myelogram viewable in Epic: No If not, please provide [phone] to fax in imaging reports for review. Also, please inform patient to hand carry imaging disc to appointment. XR (spine) within 12 months: Yes If YES, please ask for the name/address of the facility where the XR was completed: [address] [address] [address] Parisi's patients: Have you had previous EMG/Nerve Conduction Study, Ultrasound, or MRI for these same symptoms? If YES, please ask for the name/address of the facility where they were completed: Requested provider (First and Last name): any Are you interested in a virtual visit if offered? No 1. Where are you having symptoms related to this visit? Back pain Yes LBP Leg pain Yes L Leg Arm pain No Neck pain No 2. Are you having any of the following symptoms: Difficulty walking Yes Numbness No Weakness Yes L leg Trouble using your hands? No 3. Have you had any injections or physical therapy in the last 12 months? No If YES then please ask for the name/address of the facility where the injections and/or physical therapy was completed Have you tried any other kinds of non-surgical treatments in the last 12 months? (For example: NSAIDS, muscle relaxants, analgesics, oral steroids, Chiropractor, Acupuncture): Tylenol, Ibuprofen 4. Are you currently taking daily prescribed narcotic medications for your current symptoms (For example Oxycodone, Hydrocodone, Tramadol, Morphine, Other)? No 5. Have you had previous spinal surgery for this same symptoms? No If YES please ask for the name of facility/address of where the surgery was completed: Additional Comments [phone] documented in this encounter [facility] 08-07-2023 Note HNO ID: [id number] Author: ?, ?, ? Service: ? Author Type: ? Type: Progress Notes Filed: 08/10/2023 11:55 Note Text: Patient name: Francy Edmonds Are you being referred by a [facility] Spine Health Provider or Pain Management Provider at [facility]? No If answer is YES please schedule directly with surgeon, triage does not need to be completed. Is this a self-referral Yes If not, who is the Referring Provider Is this a 2nd opinion from another spine surgeon? No Were you offered surgery? No MRI/CT/myelogram within 12 months? Yes If NO , please refer to medical spine or PCP to complete above imaging, triage does not need to be completed If YES,? please ask for the name/address of the facility where the MRI/CT/myelogram was completed: [place] [address] MRI/CT/myelogram viewable in Epic: No If not, please provide [phone] to fax in imaging reports for review. Also, please inform patient to hand carry imaging disc to appointment. XR (spine) within 12 months: Yes If YES,? please ask for the name/address of the facility where the XR was completed: [address] [address] [address] Parisi's patients: Have you had previous EMG/Nerve Conduction Study, Ultrasound, or MRI for these same symptoms? If YES,? please ask for the name/address of the facility where they were completed: Requested provider (First and Last name): any Are you interested in a virtual visit if offered? No 1. Where are you having symptoms related to this visit? Back pain Yes LBP Leg pain Yes L Leg Arm pain No Neck pain No 2. Are you having any of the following symptoms: Difficulty walking Yes Numbness No Weakness Yes L leg Trouble using your hands? No 3. Have you had any injections or physical therapy in the last 12 months? No If YES then please ask for the name/address of the facility where the injections and/or physical therapy was completed Have you tried any other kinds of non-surgical treatments in the last 12 months? (For example: NSAIDS, muscle relaxants, analgesics, oral steroids, Chiropractor, Acupuncture): Tylenol, Ibuprofen 4. Are you currently taking daily prescribed narcotic medications for your current symptoms (For example Oxycodone, Hydrocodone, Tramadol, Morphine, Other)? No 5. Have you had previous spinal surgery for this same symptoms? No If YES? please ask for the name of facility/address of where the surgery was completed: Additional Comments [phone] [facility] Evaluation note Diagnosis Degeneration of lumbar or lumbosacral intervertebral disc- Primary Lumbar radiculopathy Thoracic or lumbosacral neuritis or radiculitis, unspecified [facility] Spinal stenosis of lumbar region without neurogenic claudication- Primary Panic attacks (CMS/HCC) Panic disorder without agoraphobia Anxiety Anxiety state, unspecified Tubular adenoma Benign neoplasm of unspecified site History of colon polyps Osteopenia, unspecified location Prediabetes Other abnormal glucose Encounter for wellness examination Screening mammogram for breast cancer Mixed dyslipidemia (CMS/HCC) Acquired hypothyroidism (CMS/HCC) Unspecified hypothyroidism Personal history of nicotine dependence Primary hypertension (CMS/HCC) Unspecified essential hypertension documented in this encounter [facility]* Diagnosis Personal history of colon polyps, unspecified- Primary documented in this encounter [facility] Healthcare Reason for Referral No Reason for Referral Recorded Assessments Findings Encounter Date Exposure to biological agent suspected Telemedic ine with Dary Felicia HARTMAN 09/08/2019 Instructions Instructions not supported for this document type No Instructions Recorded History of Present Illness History of Present Illness not supported for this document type No History of Present Illness Recorded Family History Includes: Family History in patient's chart No Family History RecordedNo Family History Records FoundNo Family History Records FoundNo Family History Records FoundNo Family History Records FoundNo Family History Records FoundNo Family History Records FoundNo Family History Records FoundNo Family History Records Found Review of System Review of Systems not supported for this document type No Review of Systems Recorded Physical Exam Physical Exam not supported for this document type No Physical Exam Recorded Advance Directives Includes: Current Advance Directives No Advance Directives RecordedNo Advanced Directives Records FoundNo Advanced Directives Records FoundNo Advanced Directives Records FoundNo Advanced Directives Records FoundNo Advanced Directives Records FoundNo Advanced Directiv es Records FoundNo Advanced Directives Records FoundNo Advanced Directives Records Found Summary Purpose Additional Source Comments Evaluations & Outcomes (unre cognized section and content) Includes: Evaluations & Outcomes for active GoalsNo Outcomes Recorded INFORMATION SOURCE (unrecogn ized section and content) DATE CREATED AUTHOR 10/24/2021 [facility] DATE CREATED AUTHOR AUTHOR'S ORGANIZ ATION 04/01/[address] [facility] DATE CREATED AUTHOR AUTHOR'S ORGANIZ ATION 07/07/2023 [facility] DATE CREATED AUTHOR AUTHOR'S ORGANIZ ATION 07/13/2023 [facility] DATE CREATED AUTHOR AUTHOR'S ORGANIZ ATION 07/13/2023 [facility] DATE CREATED AUTHOR AUTHOR'S ORGANIZ ATION 08/11/2023 [facility] DATE CREATED AUTHOR AUTHOR'S ORGANIZ ATION 01/04/2024 [facility] DATE CREATED AUTHOR AUTHOR'S ORGANIZ ATION 01/17/2024 [facility] Source Comments (unrecognize d section and content) In the event this informatio n is protected by the Federal Confidentiality of Alcohol and Drug Abuse Patient Records regulations: The Federal rules restrict any use of the information to criminally investigate or prosecute any alcohol or drug abuse patient.[facility] Care Teams (unrecognized sec tion and content) Single Needle Operator Relationship Specialty Start Date End Date Peggy Crawford MD [address] [place] [address] PCP - General Family Medicine 11/05/23 Waqar Traylor MD [address] [place] [address] Referring Physician Internal Medicine 10/16/22 Sis Hansen NP [address] [place] [address] Nurse Practitioner Family Medicine 11/05/23 Single Needle Operator Relationship Specialty Start Date End Date Peggy Crawford MD [address] [place] [address] PCP - General Family Medicine 11/05/23 Waqar Traylor MD [address] [place] [address] Referring Physician Internal Medicine 10/16/22 Sis Hansen NP [address] [place] [address] Nurse Practitioner Family Medicine 11/05/23 Single Needle Operator Relationship Specialty Start Date End Date Peggy Crawford MD [address] [place] [address] PCP - General Family Medicine 11/05/23 Waqar Traylor MD [address] [place] [address] Referring Physician Internal Medicine 10/16/22 Sis Hansen NP [address] [place] [address] Nurse Practitioner Family Medicine 11/05/23 Single Needle Operator Relationship Specialty Start Date End Date Peggy Crawford MD [address] [place] [address] PCP - General Family Medicine 11/05/23 Waqar Traylor MD [address] [place], [place] [id number] Referring Physician Internal Medicine 10/16/22 Sis Hansen NP [address] [place] [address] Nurse Practitioner Family Medicine 11/05/23 Reason for Visit (unrecogniz ed section and content) Reason Comments medication follow up Reason Comments Colonoscopy Pt presents today fo r a colonoscopy consult. Pt denies/admits to: has having a colonoscopy before. Last colonoscopy they removed 6 polyps and it was 3 years ago. Pt denies abdominal pain. Pt denies rectal bleeding. Pt denies changes in bowel movements. Pt admits to a family history of colon cancer that they know of. Pt denies any concern today. Patient's daughter has/had colon cancer requiring a resection. FOR RECORDS PERTAINING TO PATIENTS WHO ARE OR HAVE BEEN ENROLLED IN A CHEMICAL DEPENDENCY/SUBSTANCEABUSE PROGRAM, SOME INFORMATION MAY BE OMITTED. This clinical summary was aggregated from multiple sources. Caution should be exercised in using it in the provision of clinical care. This summary normalizes information from multiple sources, and as a consequence, information in this document may materially change the coding, format and clinical context of patient data. In addition, data may be omitted in some cases. CLINICAL DECISIONS SHOULD BE BASED ON THE PRIMARY CLINICAL RECORDS. [facility] provides no warranty or guarantee of the accuracy or completeness of information in this document.
== END 2024-02-06 11:43 | disposition home or self-care (01) ==
LOC: PST 11:42
PROVIDERS: Visit Provider Surgery
DX: Z01.818 Encounter for other preprocedural examination (principal); Z12.11 Encounter for screening for malignant neoplasm of colon

== ENCOUNTER 2024-02-12 09:02 | Day surgery (SDC) | payer OTHER, SELFPAY ==
[2024-02-12 09:19] VITALS: BP 154/86; PULSE 80; TEMP 36.2; O2SAT 98; BMI 25.7
[2024-02-12] MEDS: LACTATED RINGER'S SOLUTION 1,000 ML 50 ML IV (09:31)
--- NOTE | 2024-02-12 09:37 | W.PM.PROCNOT ---
Date of procedure: 02/12/24 Pre-op diagnosis: screening colonoscopy Post-op diagnosis: other (polypectomy at 45cm and 25cm via cold snare ) Procedure: Previous colonoscopy: 2020 procedure: colonoscopy with polypectomy at 45cm and 25cm via cold snare The patient was given IV conscious sedation.? The patient's SPO2 remained above 90% throughout the procedure. The colonoscope was inserted per rectum and advanced under direct vision to the cecum without difficulty.? The prep was good. Findings: Terminal ileum os: normal Cecum/Ascending colon: normal Transverse colon: normal Descending/Sigmoid colon: polypectomy at 45cm and 25cm via cold snare both small 2mm flat polyps Rectum/Anus: examined in normal and retroflexed positions and was normal Withdrawal Time was (minutes): 15 The colon was decompressed and the scope was removed.? The patient tolerated the procedure well. Recommendations/Plan: 1.? Lifestyle and dietary modifications as discussed 2.? F/U Biopsies 3.? F/U in 7-10 years pending pathology 4.? Discussed with the family Anesthesia: MAC Surgeon: Keegan Luna Estimated blood loss (mL): 2 Pathology: other (polyp at 45cm and 25cm) Condition: stable Disposition: PACU
[2024-02-12 10:55] VITALS: BP 90/58; PULSE 68; TEMP 36.4; O2SAT 95
[2024-02-12 11:10] VITALS: BP 119/52; PULSE 70; O2SAT 100
[2024-02-12 11:25] VITALS: BP 110/58; PULSE 71; O2SAT 99
== END 2024-02-12 11:25 | disposition home or self-care (01) ==
PROVIDERS: PCP Family Medicine; Visit Provider Surgery
PROC: (CPT 811; principal; 2024-02-12 10:00)
DX: Z12.11 Encounter for screening for malignant neoplasm of colon (principal); K63.5 Polyp of colon; Z86.0100 Personal history of colon polyps, unspecified; Z80.0 Family history of malignant neoplasm of digestive organs; F17.210 Nicotine dependence, cigarettes, uncomplicated; Z90.710 Acquired absence of both cervix and uterus; E78.5 Hyperlipidemia, unspecified; I10 Essential (primary) hypertension; K21.9 Gastro-esophageal reflux disease without esophagitis; E03.9 Hypothyroidism, unspecified; R73.03 Prediabetes
CPT/HCPCS: 45385; J2704